=== PATIENT | male | born 1980 | race Caucasian/White ===

== ENCOUNTER 2020-01-27 11:20 | Emergency (ER) | payer MEDICAID, SELFPAY ==
[2020-01-27 11:24] VITALS: BP 150/97; PULSE 99; RESP 16; TEMP 36.4; O2SAT 100
--- NOTE | 2020-01-27 11:34 | ED.MALEGU ---
HPI - Male Genitourinary General Chief complaint: Urogenital-Male Stated complaint: erection Time Seen by Provider: 01/27/20 11:32 Source: patient and RN notes reviewed Mode of arrival: ambulatory Limitations: no limitations History of Present Illness HPI Narrative: A 40 y/o male presents to the ED with priapism every morning for the past couple months. He states that his erections typically lasts a couple hours to the whole day and tend to resolve randomly. He reports that he has seen his PCP and [facility] about this, who told him that it probably was a side effect of citalopram, so he stopped taking it roughly 1 month ago but his symptoms have persisted. He notes some dysuria and that he has been losing sleep because of his symptoms, so he decided to come to the ED. He also notes that he has stopped taking all of his medications to try an figure out the cause but denies it alleviating his symptoms. He also denies any testicular pain, hematuria, urinary retention, urinary frequency, N/V/D, or ABD pain. MD Complaint: other (priapism) Onset (ago): month(s) (a couple) Duration: intermittent (every morning) Location: penis Relieving factors: none Associated symptoms: Reports dysuria Related Data Home Medications Medication Instructions Recorded Confirmed alprazolam [Xanax] 0.5 mg PO BID PRN 01/27/20 Allergies Allergy/AdvReac Type Severity Reaction Status Date / Time tramadol Allergy Intermediate HIVES Verified 01/27/20 11:30 Review of Systems Review of Systems: All systems reviewed & are unremarkable except as noted in HPI and below Gastrointestinal: Gastrointestinal: Denies abdominal pain, Denies diarrhea, Denies nausea and Denies vomiting Genitourinary: Genitourinary: Denies hematuria, Reports dysuria, Denies testicular pain, Denies urinary frequency and Reports other (priapism. Denies: urinary retention) [facility] Past Medical History Medical History (Updated 01/27/20 @ 14:08 by Manjit Daniels MD) PTSD (post-traumatic stress disorder) Surgical History Surgical History (Updated 01/27/20 @ 11:47 by Damion Last) History of cholecystectomy Hx of shoulder surgery S/P insertion of spinal cord stimulator Social History Social History (Updated 01/27/20 @ 11:47 by Damion Last) Smoking packs per day: 0.5 Smoking cigarettes per day: 10.0 Smoking status: Current every day smoker Exam Narrative: Exam Narrative: GENERAL: Well-appearing, well-nourished, and in no acute distress. HEAD: Normocephalic, atraumatic. ENT: Mucous membranes moist. CHEST: Clear to auscultation. No respiratory distress. HEART: Regular rate and rhythm. Normal peripheral pulses. ABDOMEN: Soft, nontender, nondistended. : Normal-appearing erect penis that is circumcised. Nontender to palpation. Testicles nontender. No drainage from the urethral meatus. No discoloration to the penis. EXTREMITIES: Normal range of motion. No edema. NEURO: Alert and oriented x3. Course Course Emergency Course: Reevaluation of the penis shows that it is still firm but has lost its rigidity during the ER stay. After discussing case with urology patient will be started on as needed Sudafed. Patient will follow-up outpatient. Discussed return precautions. Discussed that if there is a sustained painful erection he may need aspiration which she is hesitant to have. Consultations Consultation #1: Discussed case with Dr. Bryant (Urology). States that the pt can be given Sudafed and follow up in their office. Recommends that the pt stop smoking marijuana. Date: 01/27/20 Time: 13:09 Vital Signs Vital signs: Vital Signs Temperature 97.6 F 01/27/20 11:24 Pulse Rate 99 01/27/20 11:24 Respiratory Rate 16 01/27/20 11:24 Blood Pressure 150/97 H 01/27/20 11:24 Pulse Oximetry 100 01/27/20 11:24 Temperature 97.6 F 01/27/20 11:24 Pulse Rate 82 01/27/20 13:15 Respiratory Rate 16 01/27/20 13:15 Blood Pressure 132/88 01/27/20 13:15 Pu
[2020-01-27 12:13] LABS: Basophils Absolute Auto 0.1 K/mm3 (0.0-0.1); Basophils Percent Auto 0.8 % (0.2-1.2); Eosinophils Absolute Auto 0.4 K/mm3 (0-0.3); Eosinophils Percent Auto 5.5 % (0-4.4); Hematocrit 47.9 % (42.0-52.0); Hemoglobin 15.6 g/dL (14.0-18.0); Immature Granulocyte Absolute 0.02 K/mm3 (0.00-0.031); Immature Granulocyte Percent A 0.3 % (0-0.5); Mean Corpuscular HGB Conc 32.6 g/dl (32-36); Mean Corpuscular Hemoglobin 30.1 pg (26-34); Mean Corpuscular Volume 92.5 fl (80-100); Mean Platelet Volume 9.2 fl (7.4-10.4); Monocytes Absolute Auto 1.3 K/mm3 (0.1-0.6); Monocytes Percent Auto 19.4 % (2.6-8.5); Neutrophils Absolute Auto 3.3 K/mm3 (1.3-6.7); Platelet Count Result 361 k/mm3 (150-375); Red Blood Count 5.18 M/mm3 (4.6-6.20); Red Cell Distribution Width 12.8 % (11.5-14.5); White Blood Count 6.5 K/mm3 (4.5-10.0)
[2020-01-27] MEDS: SODIUM CHLORIDE 0.9% IV 1,000 ML 999 ML IV CONT (12:13)
[2020-01-27 12:15] LABS: Add Urine Microscopic? NO; Appearance Urine Clear (Clear); Bilirubin Urine Negative (Negative); Blood Urine Negative (Negative); Color Urine Straw (Yellow); Glucose Urine UA Negative (Negative); Ketones Urine Negative (Negative); Leukocyte Esterase Ur Negative LEU/UL (Negative); Nitrate Urine Negative (Negative); Protein Urine Negative (Negative); Urobilinogen Urine Negative mg/dL (<2.0)
[2020-01-27 12:24] LABS: Blood Urea Nitrogen 10 mg/dL (9-20); Calcium 8.9 mg/dL (8.4-10.2); Carbon Dioxide 29 mmol/L (22-30); Chloride 99 mmol/L (98-107); Estimated CRCL calculation 108 ml/min; Estimated Glomerular Filt Rate > 60; Glucose 101 mg/dL (75-110); Potassium 4.4 mmol/L (3.4-5.0); Sodium 140 mmol/L (137-145)
[2020-01-27 12:29] LABS: Amphetamine Screen Urine Negative (Negative); Barbiturate Screen Urine Negative (Negative); Benzodiazepines Screen Urine Positive (Negative); Cannabinoid Screen Urine Positive (Negative); Cocaine Screen Urine Negative (Negative); Methadone Screen Urine Negative (Negative); Opiate Screen Urine Positive (Negative); Phencyclidine Screen Urine Negative (Negative)
[2020-01-27 13:15] VITALS: BP 132/88; PULSE 82; RESP 16; O2SAT 100
[2020-01-27] MEDS: PSEUDOEPHEDRINE HCL 30 MG TABLET 60 MG PO (13:19)
[2020-01-27 14:19] VITALS: BP 127/78; PULSE 68; RESP 16; O2SAT 100
== END 2020-01-27 14:19 | disposition home or self-care (01) ==
PROVIDERS: Emergency Provider Emergency Medicine
DX: N48.30 Priapism, unspecified (principal); F43.10 Post-traumatic stress disorder, unspecified; F17.210 Nicotine dependence, cigarettes, uncomplicated
CPT/HCPCS: 36415; 80048; 80307; 81003; 85025; 96360; 99283; A9270; J7030

== ENCOUNTER 2020-04-15 19:31 | Emergency (ER) | payer MEDICAID, SELFPAY ==
[2020-04-15 19:43] VITALS: BP 119/67; PULSE 107; RESP 18; TEMP 36.6; O2SAT 98
--- NOTE | 2020-04-15 19:51 | ED.WOUNDLAC ---
HPI - Wound/Laceration General Chief Complaint: Wound/Laceration Stated Complaint: leg Time Seen by Provider: 04/15/20 19:51 Source: patient Mode of arrival: ambulatory Limitations: no limitations History of Present Illness HPI narrative: Joseph Carter is a 40 yo male with a PMH chronic back pain who comes to express care with pain and swelling of right lateral lower leg, has been present since last Saturday (7 days). abscess is improving , is draining blood and pussy discharge and pr staes is half size of few days ago Related Data Home Medications Medication Instructions Recorded Confirmed Hydrocodone 04/15/20 Allergies Allergy/AdvReac Type Severity Reaction Status Date / Time tramadol Allergy Intermediate HIVES Verified 01/27/20 11:30 Review of Systems Review of Systems: Narrative: CONSTITUTIONAL: Denies fever, chills, sweats. EYES: Denies visual changes, redness, discharge. ENT: Denies rhinorrhea, congestion, sore throat, otalgia. CARDIOVASCULAR: Denies chest pain, palpitations, edema. RESPIRATORY: Denies dyspnea, wheezing, cough GASTROINTESTINAL: Denies abdominal pain, nausea, vomiting, diarrhea. GENITOURINARY: Denies dysuria, hematuria, abnormal discharge SKIN: Denies rash or itching.Draining abscess R lateral lower leg NEUROLOGIC: Denies numbness, or focal weakness. PSYCHIATRIC: Denies anxiety or depression. PMFSH Past Medical History Medical History PTSD (post-traumatic stress disorder) Surgical History Surgical History History of cholecystectomy Hx of shoulder surgery S/P insertion of spinal cord stimulator Social History Social History (Updated 04/15/20 @ 20:06 by Chacha Oseguera CNP) Smoking packs per day: 0.5 Smoking cigarettes per day: 10.0 Smoking status: Current every day smoker Alcohol intake: former Comments At time of signature, I agree with nursing past medical, surgical, social and family history. There is no relevant family history pertinent to the presenting complaint. Exam Narrative: Exam Narrative: GENERAL: This is a well-nourished, well-developed patient, in mild distress. HEAD: normocephalic, atraumatic. EYES: PERRL. Sclera clear/white. Vision is grossly intact. EARS: External ears normal, auditory canals clear and without drainage, TMs normal without perforation. Hearing grossly intact. NOSE: External nose normal without nasal discharge, nares without redness, no rhinorrhea. THROAT: Mucous membranes moist, posterior pharynx NECK: Neck supple, non-tender CARDIOVASCULAR: Regular rate and rhythm without murmurs, gallops, or rubs. RESPIRATORY: Clear to auscultation. Breath sounds equal bilaterally. No wheezes, rales, or rhonchi. GASTROINTESTINAL: Abdomen soft, non-tender, SKIN: warm, R lateral non fluctuant abscess that is draining - about 8 cm. mild tenderness NEURO: awake, alert, and oriented to person, place and time. There were no obvious focal neurologic abnormalities. Steady gait EXTREMITIES: Normal range of motion. BACK: has stimulator for back pain Course Course Emergency Course: Started on Bactrim and Keflex Discussed warm soaks to legs and not trying to express drainage Keep dressing in place during the day Follow-up with PCP Vital Signs Vital signs: Vital Signs Temperature 97.8 F 04/15/20 19:43 Pulse Rate 107 H 04/15/20 19:43 Respiratory Rate 18 04/15/20 19:43 Blood Pressure 119/67 04/15/20 19:43 Pulse Oximetry 98 04/15/20 19:43 Temperature 97.8 F 04/15/20 19:43 Pulse Rate 107 H 04/15/20 19:43 Respiratory Rate 18 04/15/20 19:43 Blood Pressure 119/67 04/15/20 19:43 Pulse Oximetry 98 04/15/20 19:43 MDM - Wound/Laceration Differential Diagnosis Differential diagnosis: Likely abscess, abrasion and other (Cellulitis) Discharge Plan Discharge Clinical Impression: Abscess of right lower leg P
== END 2020-04-15 20:10 | disposition home or self-care (01) ==
PROVIDERS: Emergency Provider Nurse Practitioner
DX: L02.415 Cutaneous abscess of right lower limb (principal); F17.210 Nicotine dependence, cigarettes, uncomplicated
CPT/HCPCS: 99213; G0463

== ENCOUNTER 2020-08-10 16:39 | Emergency (ER) | payer OTHER, SELFPAY ==
--- NOTE | 2020-08-10 16:49 | ED.SKABFB ---
HPI - Skin/Abscess/Foreign Bdy General Chief complaint: Skin/Abscess/Foreign Body Stated complaint: Skin/Foreign Abcess Time Seen by Provider: 08/10/20 16:45 Source: patient and RN notes reviewed Mode of arrival: ambulatory Limitations: no limitations History of Present Illness HPI narrative: 40-year-old male presents with concern for an abscess behind his left knee. Reports he frequently gets these areas. Reports he uses antibacterial body wash, showers twice daily, however continues to get these. Reports he last had one in April. He denies any current drainage from the area. Denies any injury, trauma. complaint: abscess/boil Related Data Home Medications Medication Instructions Recorded Confirmed No Home Medications 08/10/20 08/10/20 Allergies Allergy/AdvReac Type Severity Reaction Status Date / Time tramadol Allergy Intermediate HIVES Verified 08/10/20 16:42 Review of Systems Review of Systems: Narrative: CONSTITUTIONAL: Denies malaise, chills, sweats, or fever. CARDIOVASCULAR: Denies chest pain, palpitations RESPIRATORY: Denies cough or dyspnea. SKIN: Reports abscess behind the left knee MUSCULOSKELETAL: Denies myalgia. All systems reviewed & are unremarkable except as noted in HPI and below PMFSH Social History Social History (Updated 04/15/20 @ 20:06 by Chacha Oseguera CNP) Smoking packs per day: 0.5 Smoking cigarettes per day: 10.0 Smoking status: Current every day smoker Alcohol intake: former Comments At time of signature, agree with nursing past medical, surgical, social and family history. There is no relevant family history pertinent to the presenting complaint Exam Narrative: Exam Narrative: GENERAL: Well-appearing, well-nourished, and in no acute distress. HEAD: Normocephalic EYES: PERRLA, conjunctivae clear ENT: Mucous membranes moist. NECK: Supple. CHEST: No respiratory distress. Speaks in full sentences. HEART: Regular rate and rhythm. EXTREMITIES: Right lower extremity has grossly normal range of motion, grossly normal strength and sensation. SKIN: Warm, dry, no rash. Approximately 3 cm papule, erythematous, indurated, tender noted behind the right knee, lateral area, nonfluctuant, no drainage noted NEURO: Alert and oriented x3. PSYCH: Normal mood and affect Course Course Emergency Course: Patient is aware of diagnosis, understands and agrees to treatment plan. Anticipatory guidance given. Patient agrees to follow-up as directed and is aware of reasons to seek care at the emergency department. Portions of this record may have been created with voice recognition software Vital Signs Vital signs: Vital Signs Temperature 98.9 F 08/10/20 16:50 Pulse Rate 84 08/10/20 16:50 Respiratory Rate 16 08/10/20 16:50 Blood Pressure 134/81 08/10/20 16:50 Pulse Oximetry 99 08/10/20 16:50 Temperature 98.9 F 08/10/20 16:50 Pulse Rate 84 08/10/20 16:50 Respiratory Rate 16 08/10/20 16:50 Blood Pressure 134/81 08/10/20 16:50 Pulse Oximetry 99 08/10/20 16:50 Reviewed. MDM - Skin/Abscess/Foreign Bdy MDM Narrative Medical decision making narrative: Exam findings show no acute concerns or changes; patient is non-toxic appearing and is in no distress. Patient is appropriate for outpatient treatment and follow-up. Differential Diagnosis Differential diagnosis: Likely abscess of skin or subcutaneous tissue, cellulitis and insect bites Critical Care Time Critical Care Time Critical Care Time: No Discharge Plan Discharge Clinical Impression: Abscess of skin or subcutaneous tissue Qualifiers: Site of cutaneous abscess: extremity Site of cutaneous abscess of extremity: lower extremity Laterality: left Qualified Code(s): L02.416 - Cutaneous abscess of left lower limb Patient Disposition: Home, Self-Care Condition: Stable Instructions: Antibiotic Form, Abscess (ED) Additional Instructions: Please follow up with your Primary Care Doctor wit
[2020-08-10 16:50] VITALS: BP 134/81; PULSE 84; RESP 16; TEMP 37.2; O2SAT 99
== END 2020-08-10 17:00 | disposition home or self-care (01) ==
PROVIDERS: Emergency Provider Nurse Practitioner
DX: L02.416 Cutaneous abscess of left lower limb (principal); F17.210 Nicotine dependence, cigarettes, uncomplicated
CPT/HCPCS: 99213; G0463

== ENCOUNTER 2020-11-14 19:53 | Emergency (ER) | payer OTHER, SELFPAY ==
--- NOTE | ~2020-11-14 | XR_ITS ---
EXAMINATION: XR chest 2V EXAM DATE: 11/14/2020 20:19 INDICATION: Mid chest pain. TECHNIQUE: Frontal and lateral projections of the chest obtained and reviewed. There is no prior karen dy for comparison. FINDINGS: There is mild to moderate upper thoracic levoscoliosis, mid thoracic dextroscoliosis. No c onfluent consolidation, pneumothorax or pleural effusion suspected. Cardiomediastinal silhouette is n ormal. IMPRESSION: No acute cardiopulmonary findings. Reviewed, dictated and finalized at location A. [employer]ING [employer] UNLOADER
[2020-11-14 19:55] VITALS: BP 154/78; PULSE 108; RESP 16; TEMP 36.3; O2SAT 100
--- NOTE | 2020-11-14 19:57 | ECG_ITS ---
Measurements Intervals [place] Rate: 106 P: 50 MN: 176 QRS: 59 QRSD: 89 T: 60 QT: 330 QTc: 439 Interpretive Statements SINUS TACH[address] ST ELEVATION IN DIFFUSE LEADS- PROBABLY EARLY REPOLARIZATION BASELINE WANDER- V1-V3 ABNORMAL ECG Electronically Signed On 11-15-2020 7:11:07 MIXING AND MOLDING MACHINE OPERATOR by Patel Guthrie D.O.
--- NOTE | 2020-11-14 20:02 | ED.GENADULT ---
HPI - General Adult General Chief complaint: Overdose Stated complaint: OD Source: RN notes reviewed History of Present Illness HPI narrative: Patient presents to emergency department via EMS for overdose. Patient states that prior to arrival he snorted a unknown drug that he had received from a friend. He does not recall what happened after this however per bystander the patient went unconscious and at that time was admitted for milligrams of IM Narcan. CPR was started on the patient by the bystander for approximately 1 minute then the patient returned to being awake and alert when EMS arrived the patient was ANO x4. The patient is currently ANO x4 no complaints except for bilateral anterior chest pain he states he was in good health prior to episodes this evening he denies any regular drug use he denies any fevers or chills abdominal pain or any other symptoms Related Data Home Medications Medication Instructions Recorded Confirmed No Home Medications 08/10/20 08/10/20 Allergies Allergy/AdvReac Type Severity Reaction Status Date / Time tramadol Allergy Intermediate HIVES Verified 08/10/20 16:42 Review of Systems Review of Systems: Narrative: Gen.: Denies fevers or chills ENT: Denies congestion Respiratory: Denies shortness of breath or cough CV: Reports chest pain GI: Denies abdominal pain nausea, emesis or diarrhea denies burning, urgency, frequency or hematuria Musculoskeletal: Denies back pain or muscle pain Neuro: Denies numbness, tingling, weakness or focal weakness Skin: Denies rash Except as documented, all other systems reviewed and negative [facility] Past Medical History Medical History (Updated 11/14/20 @ 21:55 by Sonny Pyle DO) PTSD (post-traumatic stress disorder) Surgical History Surgical History History of cholecystectomy Hx of shoulder surgery S/P insertion of spinal cord stimulator Social History Social History Smoking packs per day: 0.5 Smoking cigarettes per day: 10.0 Smoking status: Current every day smoker Alcohol intake: former Exam Narrative: Exam Narrative: APPEARANCE: No acute distress, nontoxic, resting in bed EYES: EOMI HEENT: Normocephalic, atraumatic, OMM RESPIRATORY: No respiratory distress Clear to auscultation bilaterally with no rhonchi wheezing or rales. CARDIOVASCULAR: Regular rate and rhythm without murmurs rubs or gallops. Chest: Tender palpation of bilateral anterior chest wall ABDOMINAL: Soft, nontender, nondistended, no rebound or guarding MUSCULOSKELETAl: Moves all extremities. No clubbing, cyanosis or edema. NEURO: Awake and alert x 4. Following commands, speech normal, no focal deficits SKIN:: Warm, dry. No rashes lesions or abrasions PSYCHIATRIC: Normal affect/mood, Course Course Emergency Course: Patient been monitored in the emergency department and remained awake and alert the patient then eloped from the facility without notifying staff or myself patient. Vital Signs Vital signs: Vital Signs Temperature 97.4 F L 11/14/20 19:55 Pulse Rate 108 H 11/14/20 19:55 Respiratory Rate 16 11/14/20 19:55 Blood Pressure 154/78 H 11/14/20 19:55 Pulse Oximetry 100 11/14/20 19:55 Temperature 97.4 F L 11/14/20 19:55 Pulse Rate 105 H 11/14/20 20:56 Respiratory Rate 16 11/14/20 20:56 Blood Pressure 161/79 H 11/14/20 20:56 Pulse Oximetry 97 11/14/20 20:56 Medical Decision Making Vital Signs Vital Signs: Vital Signs Temperature 97.4 F L 11/14/20 19:55 Pulse Rate 108 H 11/14/20 19:55 Respiratory Rate 16 11/14/20 19:55 Blood Pressure 154/78 H 11/14/20 19:55 Pulse Oximetry 100 11/14/20 19:55 Temperature 97.4 F L 11/14/20 19:55 Pulse Rate 105 H 11/14/20 20:56 Respiratory Rate 16 11/14/20 20:56 Blood Pressure 161/79 H 11/14/20 20:56 Pulse Oximetry 97 11/14/20 20:56 Lab Data
[2020-11-14 20:26] VITALS: RESP 17
[2020-11-14 20:37] LABS: Basophils Percent Auto 0.5 % (0.2-1.2); Eosinophils Absolute Auto 0.2 K/mm3 (0-0.3); Eosinophils Percent Auto 1.8 % (0-4.4); Hematocrit 47.1 % (42.0-52.0); Hemoglobin 15.8 g/dL (14.0-18.0); Immature Granulocyte Absolute 0.03 K/mm3 (0.00-0.031); Immature Granulocyte Percent A 0.4 % (0-0.5); Lymphocytes Absolute Auto 1.18 K/mm3 (0.9-3.2); Lymphocytes Percent Auto 13.9 % (18.3-44.2); Mean Corpuscular HGB Conc 33.5 g/dl (32-36); Mean Corpuscular Volume 92.5 fl (80-100); Mean Platelet Volume 8.6 fl (7.4-10.4); Monocytes Absolute Auto 0.8 K/mm3 (0.1-0.6); Monocytes Percent Auto 9.6 % (2.6-8.5); Neutrophils Absolute Auto 6.3 K/mm3 (1.3-6.7); Neutrophils Percent Auto 73.8 % (45.5-73.1); Platelet Count Result 341 k/mm3 (150-375); Red Blood Count 5.09 M/mm3 (4.6-6.20); Red Cell Distribution Width 12.9 % (11.5-14.5); White Blood Count 8.5 K/mm3 (4.5-10.0)
--- NOTE | 2020-11-14 20:46 | PC.NURSE ---
Patient refusing to give urine specimen saying, I'm not doing that, I don't plan on being here all night. Bring me a soda.
[2020-11-14 20:47] LABS: Prothrombin Time 13.3 Seconds (11.1-14.7)
[2020-11-14 20:48] LABS: Partial Thromboplastin Time 28.1 SECONDS (22.3-36.8)
[2020-11-14 20:49] LABS: Alanine Aminotransferase 21 U/L (4-50); Albumin Level 4.5 g/dL (3.5-5.1); Alkaline Phosphatase 102 U/L (38-126); Anion Gap 7 mmol/L (8-16); Aspartate Amino Transferase 26 U/L (17-59); Bilirubin,Total 0.3 mg/dL (0.2-1.3); Blood Urea Nitrogen 10 mg/dL (9-20); Calcium 9.2 mg/dL (8.4-10.2); Carbon Dioxide 32 mmol/L (22-30); Chloride 102 mmol/L (98-107); Estimated CRCL calculation 80 ml/min; Estimated Glomerular Filt Rate > 60; Glucose 113 mg/dL (75-110); Potassium 4.3 mmol/L (3.4-5.0); Sodium 141 mmol/L (137-145)
[2020-11-14 20:55] LABS: Ethanol < 10 mg/dL (<10)
[2020-11-14 20:56] VITALS: BP 161/79; PULSE 105; RESP 16; O2SAT 97
[2020-11-14 21:01] LABS: Troponin I < 0.012 ng/mL (0.000-0.034)
--- NOTE | 2020-11-14 21:48 | PC.NURSE ---
Pt noted to be leaving the department by staff. Pt walked out through triage. ERP aware.
== END 2020-11-14 21:53 | disposition left against medical advice (07) ==
PROVIDERS: Emergency Provider Emergency Medicine
DX: T50.901A Poisoning by unspecified drugs, medicaments and biological substances, accidental (unintentional), initial encounter (principal); F17.210 Nicotine dependence, cigarettes, uncomplicated; R00.0 Tachycardia, unspecified; R94.31 Abnormal electrocardiogram [ECG] [EKG]
CPT/HCPCS: 36415; 71046; 80053; 80307; 84484; 85025; 85610; 85730; 93005; 99284

== ENCOUNTER 2021-05-04 06:26 | Inpatient (IN) | payer OTHER, SELFPAY ==
[2021-05-04] VITALS (35 sets, daily range): BP systolic 81–147; BP diastolic 57–110; PULSE 67–145; RESP 20–32; TEMP 32.6–38.4; O2SAT 88–100; BMI 30.9
--- NOTE | ~2021-05-04 | CT_ITS ---
EXAMINATION: CT brain wo con DATE: 05/04/2021 08:06 INDICATION: Status post cardiac arrest. Overdose. TECHNIQUE: Computed tomography (CT) of the head was performed without intravenous contrast. Sagittal and coronal reconstructions were performed. The mA was adjusted according to patient size. Iterative reconstruction technique was employed. The dose-length product was 832.33 mGy-cm. COMPARISON: None FINDINGS: No acute intracranial hemorrhage or abnormal extra axial fluid collection. There is still discernible but decreased borrego-white matter differentiation along with effacement of the sulci and narrowing of the third and left and right lateral ventricles suggesting diffuse cerebral edema potentially in the setting of diffuse anoxic brain injury. The basal cisterns remain patent. No mass/mass effect. The or bits and mastoid air cells are normal. Mucosal thickening in the bilateral ethmoid sinuses. IMPRESSION: 1. Diffuse decreased borrego-white matter differentiation and narrowing of the sulci and ventricles sugg esting diffuse cerebral edema likely related to global anoxic brain injury. Reviewed, dictated and finalized at location A. IMPRESSION: 1. Diffuse decreased borrego-white matter differentiation and narrowing of the sul ci and ventricles suggesting diffuse cerebral edema likely related to global an oxic brain injury.
--- NOTE | ~2021-05-04 | XR_ITS ---
EXAMINATION: XR chest 1V portable EXAM DATE: 05/09/2021 05:25 INDICATION: Respiratory failure. Global anoxic brain injury. TECHNIQUE: Portable AP frontal chest x-ray was obtained. Comparison is made to prior examination from 05/08, 05/07. FINDINGS: Endotracheal tube tip is 3 centimeters above the sarah. Feeding tube in expected position . Several leads probably external pacer. Small to moderate amount of bibasilar atelectasis, or possibly edema and/or pneumonia. Probable laye ring small pleural effusions There is no pneumothorax suspected. Cardiomediastinal silhouette is n ormal. The bones and soft tissues are unremarkable. Compared to prior study there is been some progression in the basilar opacity. IMPRESSION: 1. Tubes in position. 2. Bibasilar opacity, combination of small pleural effusions and associated atelectasis. Edema/pneum onia not excludable. Reviewed, dictated and finalized at location A. IMPRESSION: 1. Tubes in position. 2. Bibasilar opacity, combination of small pleural effusions and associated at electasis. Edema/pneumonia not excludable.
--- NOTE | ~2021-05-04 | XR_ITS ---
EXAMINATION: XR chest 1V portable EXAM DATE: 05/08/2021 05:19 INDICATION: Respiratory failure. Global anoxic brain injury. TECHNIQUE: Portable AP frontal chest x-ray was obtained. Comparison is made to prior examination from 05/07, 05/06. FINDINGS: Endotracheal tube tip is 3 centimeters above the sarah. Feeding tube in expected position . Several leads which could be cardiac monitoring or external pacer. Small to moderate amount of bibasilar atelectasis, edema and/or pneumonia. Possible layering small p leural effusions There is no pneumothorax suspected. Cardiomediastinal silhouette is normal. The bones and soft tissues are unremarkable. Compared to prior study there is been some progression in the basilar opacity. IMPRESSION: 1. Tubes in position. 2. Progression of basilar opacity could be developing pleural effusions, atelectasis pneumonia or ed maira.. Reviewed, dictated and finalized at location A. IMPRESSION: 1. Tubes in position. 2. Progression of basilar opacity could be developing pleural effusions, atele ctasis pneumonia or edema..
--- NOTE | ~2021-05-04 | CT_ITS ---
EXAMINATION: CT cervical spine wo con EXAM DATE: 05/04/2021 08:06 INDICATION: Post cardiac arrest. Priapism. Intubated. TECHNIQUE: Spiral CT of the cervical spine was performed without contrast. Axial images were reviewe d. Coronal and sagittal reformatted images cervical spine were also reviewed. The dose-length produc t (DLP) for this examination was 548.56 mGy-cm. The exposure was tailored according to patient size (auto mA exposure control), and iterative reconstruction (ASIR) was used as additional dose reduction technique. There is no prior study for comparison. FINDINGS: Endotracheal tube. Cervical thoracic curvature, positional versus scoliosis. There is no ev idence of acute cervical fracture. The odontoid process is intact. Pre-dens space is normal. Preve rtebral soft tissue is normal. There are no soft tissue abnormalities identified. There is no disc space widening or traumatic vertebral body subluxation suspected. Mild disc disease at C5-6. Mild ce rvical arthropathy. There is mild reversal of the normal cervical lordosis which may be positional or spasm. A detailed level by level evaluation of spondylosis can be added as addendum if requested. IMPRESSION: 1. Mild reversal normal cervical lordosis. 2. No fracture. Reviewed, dictated and finalized at location B.
--- NOTE | ~2021-05-04 | XR_ITS ---
EXAMINATION: XR chest 1V portable DATE: 05/05/2021 05:47 INDICATION: Intubated TECHNIQUE: frontal and lateral views of the chest were obtained. COMPARISON: Chest radiograph dated 05/31/2021 FINDINGS: Endotracheal tube tip 5.5 cm above the sarah. Nasogastric tube extends below the left hemidiaphragm with distal tip and proximal side port in the body of the stomach. Multiple catheters projecting ove r the left lower chest and upper quadrant. Fibrillator pad projects over the right mid chest. Resolution of prior opacities in the left upper lung zone. New retrocardiac airspace opacity in the l eft lower lung zone with obscuration of the diaphragm. Mild streaky atelectasis in the left mid and r ight lower lung zones. No pneumothorax or right-sided pleural effusion. The cardiomediastinal silhoue tte is normal. Mild S-shaped thoracic scoliosis. IMPRESSION: 1. Improved aeration in the left upper lung zone with new retrocardiac consolidation at the left lowe r lung zone. Differential would include shifting atelectasis, new pneumonia, small left pleural effus ion or some combination thereof. Reviewed, dictated and finalized at location A. IMPRESSION: 1. Improved aeration in the left upper lung zone with new retrocardiac consolid ation at the left lower lung zone. Differential would include shifting atelecta sis, new pneumonia, small left pleural effusion or some combination thereof.
--- NOTE | ~2021-05-04 | XR_ITS ---
EXAMINATION: XR chest 1V portable DATE: 05/08/2021 17:24 INDICATION: Organ determination TECHNIQUE: frontal view of the chest was obtained. The COMPARISON: Chest radiograph dated 05/08/2021 at 5:17 AM FINDINGS: Endotracheal tube tip 2.0 cm above the sarah. Nasogastric tube coiled in the stomach. Dilator leads project over the left upper quadrant. . Basilar predominant hazy airspace opacities in the bilateral lower lung zones consistent with small bilateral pleural effusions and associated bibasilar atelectasis or less likely pneumonia. No pulmon manjinder edema or pneumothorax. Heart size is normal. Lower thoracic dextroscoliosis. IMPRESSION: 1. Persistent bibasilar opacities with appearance favoring small bilateral pleural effusions and asso ciated atelectasis. Differential includes pneumonia. Reviewed, dictated and finalized at location A. IMPRESSION: 1. Persistent bibasilar opacities with appearance favoring small bilateral pleu ral effusions and associated atelectasis. Differential includes pneumonia.
--- NOTE | ~2021-05-04 | XR_ITS ---
EXAMINATION: XR chest ET placement DATE: 05/04/2021 07:02 INDICATION: Endotracheal tube placement TECHNIQUE: frontal view of the chest was obtained. COMPARISON: Chest radiograph dated 11/14/2020 FINDINGS: Endotracheal tube tip 3.1 cm above the sarah. Defibrillator pad projects over the right upper chest. Multiple electrodes project over the inferior left chest/left upper quadrant. Confluent airspace opacity in the left upper lung zone with more streaky opacities in the left mid an d lower and right mid lung zones. No pleural effusion or pneumothorax. Heart size is normal.Mild S-s haped thoracic scoliosis. IMPRESSION: 1. New consolidation in the left upper lung zone which could represent atelectasis and/or pneumonia. Reviewed, dictated and finalized at location A. IMPRESSION: 1. New consolidation in the left upper lung zone which could represent atelecta sis and/or pneumonia.
--- NOTE | ~2021-05-04 | XR_ITS ---
EXAMINATION: XR chest 1V portable EXAM DATE: 05/06/2021 05:32 INDICATION: Resp Failure . Global anoxic brain injury. TECHNIQUE: Portable AP frontal chest x-ray was obtained. Comparison is made to prior examination from 05/05/2021. FINDINGS: Endotracheal tube tip is 6 centimeters above the sarah. Feeding tube in expected position . Several leads which could be cardiac monitoring or external pacer. Small amount of left basilar atelectasis or pneumonia. There are no sizable pleural effusions. The re is no pneumothorax suspected. Cardiomediastinal silhouette is normal. The bones and soft tissue s are unremarkable. There is no significant interval change compared to prior exam. IMPRESSION: 1. Tubes in position. 2. Small amount of left lower lobe atelectasis or pneumonia. Reviewed, dictated and finalized at location A.
--- NOTE | ~2021-05-04 | CT_ITS ---
EXAMINATION: CT brain wo con EXAM DATE: 05/05/2021 00:01 INDICATION: Unequal left pupil dilation. Cardiac arrest. Anoxic brain injury. TECHNIQUE: Spiral CT of the head was performed without contrast. Axial, coronal and sagittal images were reviewed. The dose-length product (DLP) for this examination was 605.33 mGy-cm. The exposure w as tailored according to patient size, and iterative reconstruction (ASIR) was used as additional dos e reduction technique. Comparison is made to prior examination from 05/04/2021. FINDINGS: Again there is diffuse effacement of the sulci overlying the cortex and cerebellum. There i s also now complete effacement of the ventricular system, with the cerebellum filling the posterior f pardeep and foramen magnum, developing tonsillar herniation. There may be early uncal herniation as well . Low density within the caudate and basal ganglia bilaterally. Appearance is consistent with global anoxic brain injury. No acute intracranial hemorrhage. No extra-axial collections. Nasogastric tube. IMPRESSION: Global anoxic brain injury with worsening cerebral and cerebellar edema, effacement of v entricles and developing tonsillar uncal herniation. Infarcted basal ganglia and caudate bilaterally. Reviewed, dictated and finalized at location B. IMPRESSION: Global anoxic brain injury with worsening cerebral and cerebellar edema, effacement of ventricles and developing tonsillar uncal herniation. Infa rcted basal ganglia and caudate bilaterally.
--- NOTE | ~2021-05-04 | XR_ITS ---
EXAMINATION: XR chest 1V portable EXAM DATE: 05/07/2021 05:33 INDICATION: Respiratory failure. Global anoxic brain injury. TECHNIQUE: Portable AP frontal chest x-ray was obtained. Comparison is made to prior examination from 05/06/2021. FINDINGS: Endotracheal tube tip is 3.6 centimeters above the sarah. Feeding tube in expected positi on. Several leads which could be cardiac monitoring or external pacer. Small to moderate amount of left basilar atelectasis, edema and/or pneumonia. There are no sizable p leural effusions. There is no pneumothorax suspected. Cardiomediastinal silhouette is normal. Th e bones and soft tissues are unremarkable. Compared to prior study, endotracheal tube has been advanced, and there is been some progression in t he basilar airspace disease. IMPRESSION: 1. Tubes in position. 2. Some progression in bibasilar acute airspace disease. Reviewed, dictated and finalized at location A.
--- NOTE | ~2021-05-04 | XR_ITS ---
EXAMINATION: XR abdomen NG/feed tube insert DATE: 05/04/2021 15:15 INDICATION: Nasogastric tube placement. TECHNIQUE: A supine view of the abdomen was obtained. COMPARISON: None. FINDINGS: There are dilated loops of small bowel. The colon is normal in caliber. The lower abdomen i s excluded. There is gaseous distention of the stomach. Surgical clips in the right upper quadrant ar e likely from cholecystectomy. A nasogastric tube tip is in the stomach. IMPRESSION: 1. Nasogastric tube tip in the stomach. 2. Dilated small bowel, likely adynamic ileus. Reviewed, dictated and finalized at location A.
--- NOTE | ~2021-05-04 | CT_ITS ---
EXAMINATION: CT brain wo con EXAM DATE: 05/08/2021 09:30 INDICATION: Anoxic Brain Injury . TECHNIQUE: Spiral CT of the head was performed without contrast. Axial, coronal and sagittal images were reviewed. The dose-length product (DLP) for this examination was 605.33 mGy-cm. The exposure w as tailored according to patient size, and iterative reconstruction (ASIR) was used as additional dos e reduction technique. Comparison is made to prior examination from 05/04/2021. FINDINGS: Prior study had diffuse cerebral and cerebellar edema, low density basal ganglia and caudat e. Compared to prior study, the cerebrum and cerebellum now has decreased density similar to the dens ity basal ganglia and caudate, consistent with evolution of global ischemic injury. Completely collap sed ventricular system from the swelling. Interval increase in density of the sagittal, transverse s inuses and also all the cerebral arteries, likely indicating slow flow or possibly thrombosis. There is herniation of the cerebellar tonsils below the foramen magnum. Difficult to determine any uncal he rniation, but pressure above the tentorium and below tentorium may be equally high. No acute intrapar enchymal hemorrhage. No extra-axial collections. IMPRESSION: Evolution of global anoxic brain injury with edema causing completely collapsed ventricl es, cerebellar tonsillar herniation. Hyperdense vasculature, sinuses either slow flow or possibly thr ombosis. Reviewed, dictated and finalized at location A. IMPRESSION: Evolution of global anoxic brain injury with edema causing complet isaias collapsed ventricles, cerebellar tonsillar herniation. Hyperdense vasculatu re, sinuses either slow flow or possibly thrombosis.
--- NOTE | 2021-05-04 06:49 | ED.GENADULT ---
HPI - General Adult General Chief complaint: Cardiac Arrest/CPR <Tuan Camarena MD - Last Filed: 05/04/21 07:51> Stated complaint: CARDIAC ARREST WITH ROSC <Tuan Camarena MD - Last Filed: 05/04/21 07:51> Time Seen by Provider: 05/04/21 06:46 <Tuan Camarena MD - Last Filed: 05/04/21 07:51> Source: EMS <Tuan Camarena MD - Last Filed: 05/04/21 07:51> Mode of arrival: EMS <Tuan Camarena MD - Last Filed: 05/04/21 07:51> Limitations: clinical condition <Tuan Camarena MD - Last Filed: 05/04/21 07:51> History of Present Illness HPI narrative: Patient 41-year-old gentleman who presents the emergency department with chief complaint of cardiac arrest. Patient was found unresponsive with asystole presenting rhythm. EMS worked in the field for 20 minutes and had return of spontaneous circulation after multiple doses of epinephrine and Narcan. Per the patient's significant other the patient may have overdosed usually uses stimulants but there was a potential that he may have accidentally overdosed. <Tuan Camarena MD - Last Filed: 05/04/21 07:51> Related Data Home medications: Home Medications Medication Instructions Recorded Confirmed No Home Medications 08/10/20 08/10/20 <Tuan Camarena MD - Last Filed: 05/04/21 07:51> Allergies/adverse reactions: Allergies Allergy/AdvReac Type Severity Reaction Status Date / Time tramadol Allergy Intermediate HIVES Verified 08/10/20 16:42 <Tuan Camarena MD - Last Filed: 05/04/21 07:51> Review of Systems Review of Systems: ROS unobtainable: Yes unobtainable due to endotracheal tube, unobtainable due to medical condition and unobtainable due to mental status <Tuan Camarena MD - Last Filed: 05/04/21 07:51> PMFSH Past Medical History Medical History: Medical History (Updated 05/04/21 @ 09:16 by Tiffanie Lainez MD) PTSD (post-traumatic stress disorder) <Tuan Camarena MD - Last Filed: 05/04/21 07:51> Surgical History Surgical History: Surgical History History of cholecystectomy Hx of shoulder surgery S/P insertion of spinal cord stimulator <Tuan Camarena MD - Last Filed: 05/04/21 07:51> Social History Social History: Social History Smoking packs per day: 0.5 Smoking cigarettes per day: 10.0 Smoking status: Current every day smoker Alcohol intake: former <Tuan Camarena MD - Last Filed: 05/04/21 07:51> Exam Narrative: Exam Narrative: GENERAL: Ill-appearing intubated HEAD: Normocephalic, atraumatic. EYES: PERRLA and EOMI. ENT: Nares clear, no rhinorrhea or epistaxis. Mucous membranes moist. NECK: Supple. CHEST: Clear to auscultation. No respiratory distress. HEART: Regular rate and rhythm. No murmur heard. Normal peripheral pulses. ABDOMEN: Soft, nontender, nondistended, normal active bowel sounds. EXTREMITIES: Normal range of motion. No edema. SKIN: Warm, dry, no rash. NEURO: Unresponsive, priapism present PSYCH: Unable to obtain <Tuan Camarena MD - Last Filed: 05/04/21 07:51> Course Reevaluation(s) Reevaluation #1: Patient reassessed this morning. Seems to be very agitated with the tube, but no purposeful movement on neurological exam. He is biting down on the tube. Able to further sedate the patient with some fentanyl, and the bite block was placed. I ordered antibiotics for the patient. Patient was ordered to have a Covid swab. CT head and C-spine notable for anoxic brain injury, no acute cervical pathology. Patient's laboratory results show multiorgan system failure and involvement likely secondary to the prolonged downtime. <Tiffanie Lainez MD - Last Filed: 05/04/21 09:17> Date: 05/04/21 <Tiffanie Garcia
[2021-05-04 07:09] LABS: Basophils Absolute Auto 0.1 K/mm3 (0.0-0.1); Basophils Percent Auto 0.8 % (0.2-1.2); Eosinophils Absolute Auto 0.1 K/mm3 (0-0.3); Eosinophils Percent Auto 1.6 % (0-4.4); Hematocrit 41.3 % (42.0-52.0); Hemoglobin 12.9 g/dL (14.0-18.0); Immature Granulocyte Absolute 0.32 K/mm3 (0.00-0.031); Lymphocytes Absolute Auto 2.61 K/mm3 (0.9-3.2); Lymphocytes Percent Auto 32.8 % (18.3-44.2); Mean Corpuscular HGB Conc 31.2 g/dl (32-36); Mean Corpuscular Hemoglobin 30.4 pg (26-34); Mean Corpuscular Volume 97.4 fl (80-100); Mean Platelet Volume 9.4 fl (7.4-10.4); Monocytes Absolute Auto 0.6 K/mm3 (0.1-0.6); Monocytes Percent Auto 7.3 % (2.6-8.5); Neutrophils Absolute Auto 4.3 K/mm3 (1.3-6.7); Neutrophils Percent Auto 53.5 % (45.5-73.1); Platelet Count Result 270 k/mm3 (150-375); Red Blood Count 4.24 M/mm3 (4.6-6.20); Red Cell Distribution Width 13.3 % (11.5-14.5)
[2021-05-04 07:11] LABS: Alveolar/Arterial O2 Gradient 117.2 mmHg; Base Excess ABG -6.8 mEq/l (+/-2.0); Fractional Inspired Oxygen 100 %; HCO3 ABG 21.4 mEq/l (22.0-26.0); Oxygen Content ABG 23.3 %vol (16.0-22.0); Oxygen Saturation ABG 99.9 % (95.0-100.0); Oxyhemoglobin 97.3 % THb (90.0-100.0); PCO2 ABG 52.9 mmHg (35.0-45.0); PO2 ABG 542.9 mmHg (80.0-100.0); PO2 FiO2 Ratio Arterial Blood 5.43 %
[2021-05-04 07:12] LABS: Device VENTILATOR; Modified Allen's Test Pass; Site Drawn RIGHT RADIAL; pH ABG 7.224 (7.350-7.450)
[2021-05-04] MEDS: PROPOFOL IV EMULSION 100 ML 18.6 MG IV CONT (07:12)
--- NOTE | 2021-05-04 07:12 | PC.NURSE ---
propofol drip started 30mcg/kg/min @0712, pt noted generalized tremoring, bilat pupils equal and pinpoint ST on monitor to 110's, 100% sats on vent, hypertensive
[2021-05-04 07:13] LABS: Arterial Blood Gas PEEP 8 cmH2O; Arterial Blood Gas Tidal Volume 450 ml; Arterial Blood Gas Vent Mode CMV; Arterial Blood Gas Ventilator rate 20 /MIN
[2021-05-04 07:18] LABS: Ethanol < 10 mg/dL (<10)
[2021-05-04 07:21] LABS: Add Urine Microscopic? YES; Appearance Urine Clear (Clear); Bilirubin Urine Negative (Negative); Blood Urine Negative (Negative); Color Urine Yellow (Yellow); Glucose Urine UA Negative (Negative); Ketones Urine Negative (Negative); Leukocyte Esterase Ur Negative LEU/UL (Negative); Nitrate Urine Negative (Negative); Protein Urine 2+ mg/dL (Negative); Specific Grav Ur 1.024 (1.001-1.035); Urobilinogen Urine Negative mg/dL (<2.0)
[2021-05-04 07:21] LABS: Partial Thromboplastin Time 24.9 SECONDS (22.3-36.8); Prothrombin Time 14.2 Seconds (11.1-14.7)
--- NOTE | 2021-05-04 07:21 | PC.NURSE ---
Report to oncoming shift RN
[2021-05-04 07:22] LABS: Albumin Level 4.1 g/dL (3.5-5.1); Alkaline Phosphatase 72 U/L (38-126); Anion Gap 19 mmol/L (8-16); Aspartate Amino Transferase 175 U/L (17-59); Bilirubin,Total 0.4 mg/dL (0.2-1.3); Blood Urea Nitrogen 16 mg/dL (9-20); Carbon Dioxide 20 mmol/L (22-30); Chloride 100 mmol/L (98-107); Estimated CRCL calculation 58 ml/min; Estimated Glomerular Filt Rate 39; Glucose 359 mg/dL (75-110); Magnesium 2.6 mg/dL (1.6-2.3); Potassium 5.6 mmol/L (3.4-5.0); Sodium 139 mmol/L (137-145)
[2021-05-04 07:23] LABS: Lactic Acid Reflex 8.7 mmol/L (0.7-2.1)
[2021-05-04 07:25] LABS: Mucus Urine Few /lpf; Squamous Epithelial Cell Urine Rare /hpf (Few)
[2021-05-04 07:31] LABS: Troponin I < 0.012 ng/mL (0.000-0.034)
[2021-05-04 07:32] LABS: Alanine Aminotransferase 123 U/L (4-50)
[2021-05-04 07:35] LABS: Barbiturate Screen Urine Negative (Negative); Benzodiazepines Screen Urine Positive (Negative)
[2021-05-04 07:36] LABS: Cannabinoid Screen Urine Positive (Negative); Cocaine Screen Urine Negative (Negative); Methadone Screen Urine Negative (Negative); Opiate Screen Urine Negative (Negative); Phencyclidine Screen Urine Negative (Negative)
[2021-05-04 07:51] LABS: Amphetamine Screen Urine Positive (Negative)
[2021-05-04] MEDS: fentaNYL CITRATE INJ (*CRX) 100 MCG/2 ML VIAL (08:28)
[2021-05-04] MEDS: fentaNYL CITRATE INJ (*CRX) 100 MCG/2 ML VIAL 40 MCG IV PUSH (08:30)
--- NOTE | 2021-05-04 08:30 | PC.NURSE ---
ED MD Dr. Lainez aware pt continuing to tremor and bite down on tube, breathing over vent and increased pressures. Will start Fentanyl drip per order. ST on monitor to 120's
[2021-05-04] MEDS: ETOMIDATE 20 MG/10 ML AMPUL (08:47)
--- NOTE | 2021-05-04 09:05 | PC.NURSE ---
ICU MD at bedside, order to increase propofol to 40mcg/kg/min and increased prn, start Levophed @5mcg/min. Pt continuing to have generalized tremors, ST rate in 130's, tachypneic (ETT secured by resp tech d/t pt clenching on tube)
[2021-05-04] MEDS: NOREPINEPHRINE 8 MG/D5W 250 ML 8 MG/250 ML BAG 9.38 MG IV CONT (09:11)
--- NOTE | 2021-05-04 10:00 | ECG_ITS ---
Measurements Intervals [place] Rate: 142 P: 76 GA: 128 QRS: 74 QRSD: 86 T: 69 QT: 267 QTc: 411 Interpretive Statements SINUS TACHYCARDIA DELAYED PRECORDIAL R/S TRANSITION ABNORMAL ECG Electronically Signed On 05-04-2021 15:53:23 CDT by Patel Guthrie D.O.
[2021-05-04 10:05] LABS: Reflex Lactic Acid Yes or No Add Lactic
--- NOTE | 2021-05-04 10:40 | ADMGEN ---
This patient, Joseph Carter Jr., was admitted to Intensive Care Unit-5. Patient/family oriented to hospital policies and general routines including ID bracelet, bed and alarms, visiting hours, pain management, procedures, bathroom and other care routines, personal items, smoking policy, room service/diet, and visiting hours. Information on how to activate the Rapid Response Team has been discussed. Patient/Family are encouraged to report perceived risks to care and to ask questions if they do not understand what they are told or what they should do.
--- NOTE | 2021-05-04 10:50 | WPDCNINT ---
Assessment and Plan Assessment and plan (1) Cardiac arrest: Code(s): I46.9 - Cardiac arrest, cause unspecified Status: Acute Assessment and Plan: Likely secondary to drug overdose Telemetry monitoring Serial troponin Check echocardiogram Monitor and replace electrolytes Respiratory and hemodynamic support (2) Acute respiratory failure: Code(s): J96.00 - Acute respiratory failure, unspecified whether with hypoxia or hypercapnia Status: Acute Assessment and Plan: Acute Respiratory failure secondary to cardiac arrest and anoxic brain injury Continue full mechanical ventilation support to prevent hypoxemia/hypercarbia and end organ damage. ABG and PCXR reviewed Repeat ABG Low tidal volume ventilation strategy to prevent volutrauma Will attempt SBT when ready to wean. Zosyn for aspiration pneumonia (3) Anoxic brain injury: Code(s): G93.1 - Anoxic brain damage, not elsewhere classified Status: Acute Assessment and Plan: Patient clearly has severe anoxic brain injury as evidenced from his head CT on presentation along with cerebral edema Patient will be started on hypothermia protocol for next 24 hours Consult neurology Check EEG Hypertonic saline (4) Cerebral edema: Code(s): G93.6 - Cerebral edema Status: Acute Assessment and Plan: Start 3% saline Serial BMPs (5) Suspected COVID-19 virus infection: Code(s): Z20.822 - Contact with and (suspected) exposure to COVID-19 Status: Acute Assessment and Plan: COVID-19 suspected. SARS-CoV-2 PCR sent and results pending Patient is in Airborne, Droplet and Contact Isolation (6) Aspiration pneumonia: Code(s): J69.0 - Pneumonitis due to inhalation of food and vomit Status: Acute Assessment and Plan: Sputum and blood culture Zosyn (7) Priapism: Code(s): N48.30 - Priapism, unspecified Status: Acute Assessment and Plan: Consult urology (8) Shock: Code(s): R57.9 - Shock, unspecified Status: Acute Assessment and Plan: Sepsis versus hypovolemic versus sedation Patient was given another IV fluid bolus in the ER Continue IV fluids Levophed, Monitor lactic acid level Empiric antibiotics (9) Encephalopathy: Code(s): G93.40 - Encephalopathy, unspecified Status: Acute Assessment and Plan: Secondary to drugs and anoxic brain injury Currently sedated with propofol for therapeutic hypothermia protocol (10) KATJA (acute kidney injury): Code(s): N17.9 - Acute kidney failure, unspecified Status: Acute Assessment and Plan: Likely secondary to shock and hypovolemia Monitor intake output and electrolytes Patient is on IV fluids (11) Hyperkalemia: Code(s): E87.5 - Hyperkalemia Status: Acute Assessment and Plan: Recheck BMP at this time and treat depending on repeat potassium level Kayexalate (12) Polysubstance abuse: Code(s): F19.10 - Other psychoactive substance abuse, uncomplicated Status: Acute Assessment and Plan: UDS was positive for benzodiazepine cannabinoids and Amphetamine Patient also has history of opioid use and overdose in the past Additional Plan DVT prophylaxis -Lovenox Stress ulcer prophylaxis -Pepcid Nutrition -NPO Code Status - Full Code I tried to call the 2 numbers listed in patient's chart but unable to get hold of anyone. Total Critical Care Time - 50 minutes Due to a high probability of clinically significant, life threatening deterioration, the patient required my highest level of preparedness to intervene emergently and I personally spent this critical care time directly and personally managing the patient. This critical care time included obtaining a history; examining the patient; pulse oximetry; ordering and review of studies; arranging urgent treatment with development of a management plan; evaluation of patient's response to aldo
[2021-05-04] MEDS: PROPOFOL IV EMULSION 100 ML 31.05 MG IV CONT ×2 (11:00→13:35)
--- NOTE | 2021-05-04 11:32 | PC.NURSE ---
Dr. Arango at bedside to evaluate priapism.
[2021-05-04] MEDS: ENOXAPARIN 40 MG/0.4 ML SYRINGE SUB-Q (11:44)
[2021-05-04] MEDS: CENTRAL LINE FLUSH 10 ML IV PUSH ×3 (11:45→22:35)
[2021-05-04] MEDS: SODIUM CHLORIDE 3% 500 ML 50 ML IV CONT ×2 (11:45→22:35)
[2021-05-04 11:48] LABS: Hematocrit 46.4 % (42.0-52.0); Mean Corpuscular HGB Conc 32.3 g/dl (32-36); Mean Corpuscular Hemoglobin 30.3 pg (26-34); Mean Corpuscular Volume 93.7 fl (80-100); Mean Platelet Volume 8.8 fl (7.4-10.4); Platelet Count Result 298 k/mm3 (150-375); Red Blood Count 4.95 M/mm3 (4.6-6.20); Red Cell Distribution Width 13.4 % (11.5-14.5); White Blood Count 15.4 K/mm3 (4.5-10.0)
--- NOTE | 2021-05-04 11:49 | PM.IMHP ---
H&P: HPI History of Present Illness Date/Time: 05/04/21 11:49 Chief Complaint: Cardiac Arrest with ROSC Narrative: 41yo male with known hx of drug abuse who was brought in by EMS after being found in cardiac arrest. Patient unable to provide hx. Majority of the history obtained from the ED notes, ED doctor and web methods developer who has spoken with family. Patient's is currently 33wks and states she discovered infidelity on the part of the patient and asked him to leave the house a few days ago. Patient has been at a dopa house recently. He has a long hx of drug use mostly using Meth. He was seen her in November 2020 for a drug overdose; he recovered and absconded from the ED. He has had multiple treatments at drug rehabs in the past most recently in January where he received a COVID vaccine. He also has been using fentanyl as well more recently. EMS was called to the scene and found the patient down without pulse. CPR started and ROSC achieved after about 20 minutes. He did receive multiple doses of narcan and epinephrine. Unclear on total amount of down time. Patient brought to the ED. In the ED, BP 89/76 so central line placed and Levophed started. CT brain already showing diffuse decreased borrego-white matter differentiation and narrowing of the sulci and ventricles suggesting diffuse cerebral edema likely related to global anoxic brain injury. CXR showing IRIS infiltrate. WBC 15. ABG 7.22/53/543 on MV. Cr 1.9, Glucose 359, LA 8.7 with elevated LFTs. UDS positive for Amph, Benzos, Cannabis. Broad spectrum abx ordered. He is currently intubated and sedated. Review of Systems Review of Systems: ROS unobtainable: Yes unobtainable due to endotracheal tube and unobtainable due to mental status PMFSH Past Medical History Medical History (Updated 05/04/21 @ 12:33 by Tuan Shaver MD) PTSD (post-traumatic stress disorder) Surgical History Surgical History History of cholecystectomy Hx of shoulder surgery S/P insertion of spinal cord stimulator Family History Family History (Updated 05/04/21 @ 12:07 by Tuan Shaver MD) Other Family history unobtainable Social History Social History (Updated 05/04/21 @ 12:09 by Tuan Shaver MD) Social History: Patient smokes 1ppd. Drug history as above. [place] war vet. Was living with his until recently Smoking packs per day: 0.5 Smoking cigarettes per day: 10.0 Smoking status: Unknown if ever smoked Alcohol intake: former Spiritual care concerns: No Meds Home Medications and Allergies Home Medications Medication Instructions Recorded Confirmed Type No Home Medications 08/10/20 05/04/21 History Allergies Allergy/AdvReac Type Severity Reaction Status Date / Time tramadol Allergy Intermediate HIVES Verified 08/10/20 16:42 Vital Signs Vital Signs - 24 hr 05/04/21 06:30 05/04/21 06:47 05/04/21 07:12 Temperature 97.5 F L Pulse Rate 101 H 103 H 114 H Respiratory Rate 25 H Blood Pressure 89/76 L Pulse Oximetry 88 L 93 05/04/21 07:30 05/04/21 07:32 05/04/21 08:15 Temperature Pulse Rate 112 H 110 H 121 H Respiratory Rate 25 H 22 H 23 H Blood Pressure 117/75 111/61 Pulse Oximetry 100 98 05/04/21 08:18 05/04/21 08:40 05/04/21 08:45 Temperature Pulse Rate 120 H 135 H 132 H Respiratory Rate 25 H 30 H 31 H Blood Pressure 111/57 L Pulse Oximetry 98 05/04/21 08:50 05/04/21 09:03 05/04/21 09:08 Temperature Pulse Rate 134 H 136 H 136 H Respiratory Rate 27 H 32 H Blood Pressure 81/59 L Pulse Oximetry 98 98 05/04/21 09:11 05/04/21 09:35 05/04/21 10:00 Temperature Pulse Rate 136 H 138 H 140 H Respiratory Rate 29 H 26 H Blood Pressure 81/59 L 118/85 Pulse Oximetry 100 05/04/21 10:30 05/04/21 11:00 Temperature 100.5 F H Pulse Rate 143 H 141 H Respiratory Rate 27 H Blood Pressure 134/101 H
[2021-05-04 12:01] LABS: Lactic Acid Reflex 1.8 mmol/L (0.7-2.1)
[2021-05-04 12:01] LABS: Creatine Kinase 134 U/L (55-170); Magnesium 1.8 mg/dL (1.6-2.3)
[2021-05-04 12:02] LABS: Alanine Aminotransferase 161 U/L (4-50); Albumin Level 4.2 g/dL (3.5-5.1); Alkaline Phosphatase 100 U/L (38-126); Anion Gap 11 mmol/L (8-16); Aspartate Amino Transferase 160 U/L (17-59); Bilirubin,Total 0.3 mg/dL (0.2-1.3); Blood Urea Nitrogen 21 mg/dL (9-20); Calcium 7.7 mg/dL (8.4-10.2); Carbon Dioxide 22 mmol/L (22-30); Chloride 108 mmol/L (98-107); Estimated CRCL calculation 58 ml/min; Estimated Glomerular Filt Rate 39; Glucose 131 mg/dL (75-110); Potassium 4.7 mmol/L (3.4-5.0); Sodium 141 mmol/L (137-145)
[2021-05-04 12:09] LABS: Prothrombin Time 13.5 Seconds (11.1-14.7)
[2021-05-04] MEDS: SODIUM CHLORIDE 0.9% IV 1,000 ML 125 ML IV CONT (12:09)
[2021-05-04 12:20] LABS: Troponin I 0.248 ng/mL (0.000-0.034)
[2021-05-04 12:27] LABS: Glucose Point of Care 150 mg/dl (65-105)
[2021-05-04 12:27] LABS: Glucose Point of Care 171 mg/dl (65-105)
[2021-05-04 13:42] LABS: Glucose Point of Care 185 mg/dl (65-105)
[2021-05-04] MEDS: dexmedeTOMIDine 400 MCG/100 ML 400 MCG/100 ML BAG 5.18 MCG IV CONT (14:21)
[2021-05-04 14:25] LABS: Glucose Point of Care 200 mg/dl (65-105)
--- NOTE | 2021-05-04 14:38 | WPDURCON ---
Assessment and Plan Assessment and plan (1) Priapism: Code(s): N48.30 - Priapism, unspecified Status: Acute Assessment and Plan: Spontaneous resolution of priapism likely from systemic ephedrine used during the course of resuscitation. Urology Consult Note HPI Date Seen: 05/04/21 Requesting Physician: Meng Shaver MD Primary Care Provider: [facility] Consult Narrative Narrative: Joseph Carter Jr. is a 41 year old male with a history of a polysubstance abuse who suffered a cardiac arrest outside hospital today. He had an undetermined period of anoxia prior to resuscitation. Either during evaluation in the emergency department or in the ICU, reportedly, he had an erection that seemed not to go away, prompting consultation for priapism. There is some suggestion that he has a history of priapism in the past, although he has never been seen by partners of mine. With initial examination, within 30 minutes of recently consultation, his penis had detumesced. Review of Systems Review of Systems: ROS unobtainable: Yes unobtainable due to endotracheal tube PMFSH Past Medical History Medical History PTSD (post-traumatic stress disorder) Surgical History Surgical History History of cholecystectomy Hx of shoulder surgery S/P insertion of spinal cord stimulator Family History Family History Other Family history unobtainable Social History Social History Social History: Patient smokes 1ppd. Drug history as above. [place] war vet. Was living with his until recently Smoking packs per day: 0.5 Smoking cigarettes per day: 10.0 Smoking status: Unknown if ever smoked Alcohol intake: former Spiritual care concerns: No Meds Home Medications and Allergies Home Medications Medication Instructions Recorded Confirmed Type No Home Medications 08/10/20 05/04/21 History Allergies Allergy/AdvReac Type Severity Reaction Status Date / Time tramadol Allergy Intermediate HIVES Verified 08/10/20 16:42 Vital Signs Vital Signs - 24 hr 05/04/21 06:30 05/04/21 06:47 05/04/21 07:12 Temperature 97.5 F L Pulse Rate 101 H 103 H 114 H Respiratory Rate 25 H Blood Pressure 89/76 L Pulse Oximetry 88 L 93 05/04/21 07:30 05/04/21 07:32 05/04/21 08:15 Temperature Pulse Rate 112 H 110 H 121 H Respiratory Rate 25 H 22 H 23 H Blood Pressure 117/75 111/61 Pulse Oximetry 100 98 05/04/21 08:18 05/04/21 08:40 05/04/21 08:45 Temperature Pulse Rate 120 H 135 H 132 H Respiratory Rate 25 H 30 H 31 H Blood Pressure 111/57 L Pulse Oximetry 98 05/04/21 08:50 05/04/21 09:03 05/04/21 09:08 Temperature Pulse Rate 134 H 136 H 136 H Respiratory Rate 27 H 32 H Blood Pressure 81/59 L Pulse Oximetry 98 98 05/04/21 09:11 05/04/21 09:35 05/04/21 10:00 Temperature Pulse Rate 136 H 138 H 140 H Respiratory Rate 29 H 26 H Blood Pressure 81/59 L 118/85 Pulse Oximetry 100 05/04/21 10:30 05/04/21 11:00 05/04/21 14:21 Temperature 100.5 F H Pulse Rate 143 H 141 H 113 H Respiratory Rate 27 H 23 H Blood Pressure 134/102 H Pulse Oximetry 100 100 Exam Const: General: no acute distress GI: Inspection: non-distended GI Palp: No abdominal tenderness and No Guarding due to palpation present (GI) Auscultation: normal bowel sounds : Penis: Yes normal penis Urinary Catheter: Urinary Catheter: patent and draining and urine clear Results Labs CBC & Chem 7: 05/04/21 11:33 05/04/21 11:33 Labs: Short CBC 05/04/21 05/04/21 Range/Units 06:53 11:33 WBC 8.0 15.4 H (4.5-10.0) K/mm3 Hgb 12.9 L 15.0 (14.0-18.0) g/dL Hct 41.3 L 46.4 (42.0-52.0) % Plt Count 270
[2021-05-04 15:17] LABS: Glucose Point of Care 120 mg/dl (65-105)
[2021-05-04 15:31] LABS: Alveolar/Arterial O2 Gradient 105.5 mmHg; Base Excess ABG -3.4 mEq/l (+/-2.0); Carboxyhemoglobin 0.3 % THb (0-2.0); Fractional Inspired Oxygen 50 %; HCO3 ABG 20.4 mEq/l (22.0-26.0); Methemoglobin ABG 0.4 %THb (0-1.5); Oxygen Content ABG 22.1 %vol (16.0-22.0); Oxygen Saturation ABG 99.4 % (95.0-100.0); Oxyhemoglobin 98.2 % THb (90.0-100.0); PCO2 ABG 33.8 mmHg (35.0-45.0); PO2 FiO2 Ratio Arterial Blood 4.26 %; Reduced Hemoglobin 1.1 %THb (0-5.0); Total Hemoglobin 15.7 g/dL (12.0-18.0); pH ABG 7.399 (7.350-7.450)
[2021-05-04 15:35] LABS: Arterial Blood Gas PEEP 8 cmH2O; Arterial Blood Gas Tidal Volume 450 ml; Arterial Blood Gas Vent Mode CMV; Arterial Blood Gas Ventilator rate 20 /MIN; Device VENTILATOR; Modified Allen's Test Pass; Site Drawn RIGHT RADIAL
[2021-05-04 15:40] LABS: HIV 1/2 Ab P24 Ag Result Negative (Negative)
[2021-05-04 16:15] LABS: Hepatitis B Surface Antigen Negative (Negative)
[2021-05-04 16:20] LABS: HAV RESULT Negative (Negative)
[2021-05-04 16:32] LABS: Hepatitis B Surface Anti Res Positive; Hepatitis C Virus Antibody Reactive (Negative)
[2021-05-04] MEDS: ASPIRIN 325 MG TABLET FEED TUBE (16:43)
[2021-05-04] MEDS: PROPOFOL IV EMULSION 100 ML 24.84 MG IV CONT ×2 (16:51→20:40)
[2021-05-04 17:00] LABS: Glucose Point of Care 99 mg/dl (65-105)
--- NOTE | 2021-05-04 18:00 | ECG_ITS ---
Measurements Intervals [place] Rate: 69 P: 37 CT: 157 QRS: 62 QRSD: 120 T: 57 QT: 481 QTc: 517 Interpretive Statements SINUS RHYTHM INCOMPLETE RIGHT BUNDLE BRANCH BLOCK ST ELEVATION IN DIFFUSE LEADS- PROBABLY EARLY REPOLARIZATION ABNORMALITY PROLONGED QT INTERVAL ABNORMAL ECG Electronically Signed On 05-05-2021 7:51:37 CDT by Patel Guthrie D.O.
[2021-05-04 18:10] LABS: Glucose Point of Care 113 mg/dl (65-105)
[2021-05-04 18:42] LABS: SARS-CoV-2 RNA PCR Negative
[2021-05-04 18:50] LABS: Glucose Point of Care 136 mg/dl (65-105)
[2021-05-04 19:12] LABS: Anion Gap 11 mmol/L (8-16); Blood Urea Nitrogen 21 mg/dL (9-20); Calcium 8.9 mg/dL (8.4-10.2); Carbon Dioxide 21 mmol/L (22-30); Chloride 110 mmol/L (98-107); Estimated CRCL calculation 69 ml/min; Estimated Glomerular Filt Rate 48; Glucose 133 mg/dL (75-110); Magnesium 2.2 mg/dL (1.6-2.3); Phosphorus 2.5 mg/dL (2.5-4.5); Potassium 4.5 mmol/L (3.4-5.0); Sodium 142 mmol/L (137-145)
--- NOTE | 2021-05-04 19:28 | PC.NURSE ---
Patient achieved hypothermia goal temperature at 1800, temperature noted to be 90.6 degrees/32.[address] Jones advised. Patient covid test noted to be negative, patient spouse notified.
[2021-05-04 19:42] LABS: Troponin I 0.184 ng/mL (0.000-0.034)
[2021-05-04 19:47] LABS: Glucose Point of Care 130 mg/dl (65-105)
[2021-05-04] MEDS: FAMOTIDINE 20 MG/2 ML VIAL IV PUSH (20:16)
[2021-05-04 20:20] LABS: Glucose Point of Care 143 mg/dl (65-105)
[2021-05-04 21:31] LABS: Glucose Point of Care 115 mg/dl (65-105)
[2021-05-04 22:19] LABS: Hematocrit 44.9 % (42.0-52.0); Hemoglobin 14.5 g/dL (14.0-18.0); Mean Corpuscular HGB Conc 32.3 g/dl (32-36); Mean Corpuscular Hemoglobin 30.9 pg (26-34); Mean Corpuscular Volume 95.7 fl (80-100); Mean Platelet Volume 8.9 fl (7.4-10.4); Platelet Count Result 249 k/mm3 (150-375); Red Blood Count 4.69 M/mm3 (4.6-6.20); Red Cell Distribution Width 13.4 % (11.5-14.5); White Blood Count 17.7 K/mm3 (4.5-10.0)
[2021-05-04 22:21] LABS: Glucose Point of Care 117 mg/dl (65-105)
[2021-05-04 22:28] LABS: Partial Thromboplastin Time 27.7 SECONDS (22.3-36.8)
[2021-05-04 22:29] LABS: Lactic Acid Reflex 1.4 mmol/L (0.7-2.1)
[2021-05-04 22:30] LABS: Anion Gap 7 mmol/L (8-16); Blood Urea Nitrogen 19 mg/dL (9-20); Calcium 8.7 mg/dL (8.4-10.2); Carbon Dioxide 23 mmol/L (22-30); Chloride 114 mmol/L (98-107); Creatine Kinase 113 U/L (55-170); Estimated CRCL calculation 73 ml/min; Estimated Glomerular Filt Rate 52; Glucose 122 mg/dL (75-110); Sodium 144 mmol/L (137-145)
[2021-05-04 23:12] LABS: Base Excess ABG -12.7 mEq/l (+/-2.0); Carboxyhemoglobin 0.3 % THb (0-2.0); Fractional Inspired Oxygen 30 %; HCO3 ABG 14.2 mEq/l (22.0-26.0); Methemoglobin ABG 1.8 %THb (0-1.5); Oxygen Content ABG 5.6 %vol (16.0-22.0); PCO2 ABG 36.1 mmHg (35.0-45.0); Reduced Hemoglobin 65.9 %THb (0-5.0); Total Hemoglobin 12.5 g/dL (12.0-18.0)
[2021-05-04] MEDS: PHENYLEPHRINE HCL INJ 10 MG, SODIUM CHLORIDE 0.9% INJ 19 ML I-CAVERN (23:15)
[2021-05-04 23:16] LABS: pH ABG 7.232 (7.350-7.450)
[2021-05-04 23:18] LABS: PO2 ABG 22.8 mmHg (80.0-100.0)
[2021-05-04 23:19] LABS: Oxygen Saturation ABG 31.3 % (95.0-100.0)
[2021-05-04 23:22] LABS: Device VENTILATOR
[2021-05-04 23:23] LABS: Arterial Blood Gas PEEP 8 cmH2O; Arterial Blood Gas Tidal Volume 450 ml; Arterial Blood Gas Vent Mode CMV; Arterial Blood Gas Ventilator rate 20 /MIN
[2021-05-05] VITALS (37 sets, daily range): BP systolic 83–164; BP diastolic 48–117; PULSE 62–115; RESP 20–40; TEMP 32.3–35; O2SAT 98–100
--- NOTE | 2021-05-05 00:12 | PM.PROC ---
Procedure Note - Detailed Date of procedure: 05/05/21 Pre-op diagnosis: cardiac arrest Post-op diagnosis: same Procedure performed: Corporal aspiration Irrigation with phenylephrine Description of procedure: After receiving telephone consent from the patient's Melia, we prepped the penis with betadine. An 18g angiocatheter was inserted at the 3:00 position towards the base. Aspiration was performed using a saline flush. A blood gas was sent and demonsrated findings consistent with ischemic pripaism. I then elected to irrigated with 500 mcg/mL phenylephrine (mixed by pharmacy). 1.0 cc was injected and aspiration continued. The patient quikdly detmesced. His BP jerry slightly, but recovered. The injection site was dressed with a sterile dressing and coban pressure dressing. Anesthesia: GETA Surgeon: Emilio Casey MD Estimated blood loss (mL): 10 Drains: No Packing: No Pathology: yes (ABG) Complications: No immediate complications Condition: critical Disposition: ICU Findings: pH 7.232, pO2 22.8
--- NOTE | 2021-05-05 00:19 | PM.EVENT ---
Event Note Event Note Event Note: I was contacted by Deepika regarding priapism lasting 4 hours. She reported a rigid and erect phallus. On physical examination, I agree. I discussed with the patient's , she reports he has a long [facility] I explained corporal aspiration and irrigation and she agreed with the procedure after a discussion of the benefits, risks and alternatives. With the help of Deepika, the aforementioned procedure was performed with detumescence noted. will continue to follow. Call if recurrence of priapism.
[2021-05-05 00:39] LABS: Alanine Aminotransferase 138 U/L (4-50); Albumin Level 3.7 g/dL (3.5-5.1); Alkaline Phosphatase 93 U/L (38-126); Anion Gap 8 mmol/L (8-16); Aspartate Amino Transferase 107 U/L (17-59); Bilirubin,Total 0.4 mg/dL (0.2-1.3); Blood Urea Nitrogen 19 mg/dL (9-20); Calcium 8.7 mg/dL (8.4-10.2); Carbon Dioxide 21 mmol/L (22-30); Chloride 115 mmol/L (98-107); Estimated CRCL calculation 78 ml/min; Estimated Glomerular Filt Rate 56; Glucose 124 mg/dL (75-110); INR 0.9; Phosphorus 2.2 mg/dL (2.5-4.5); Potassium 4.1 mmol/L (3.4-5.0); Prothrombin Time 13.1 Seconds (11.1-14.7); Sodium 144 mmol/L (137-145)
[2021-05-05 01:23] LABS: Glucose Point of Care 134 mg/dl (65-105)
[2021-05-05 01:23] LABS: Glucose Point of Care 119 mg/dl (65-105)
[2021-05-05] MEDS: MANNITOL 20% 250 ML 50 ML IVPB (01:34)
[2021-05-05] MEDS: PROPOFOL IV EMULSION 100 ML 21.74 MG IV CONT (01:35)
[2021-05-05 01:46] LABS: Glucose Point of Care 146 mg/dl (65-105)
--- NOTE | 2021-05-05 02:00 | ECG_ITS ---
Measurements Intervals [place] Rate: 75 P: 34 KS: 161 QRS: 49 QRSD: 108 T: 40 QT: 478 QTc: 536 Interpretive Statements SINUS RHYTHM VOLTAGE CRITERIA FOR LVH ST ELEVATION IN DIFFUSE LEADS- PROBABLY EARLY REPOLARIZATION ABNORMALITY PROLONGED QT INTERVAL ABNORMAL ECG Electronically Signed On 05-05-2021 7:50:24 CDT by Patel Guthrie D.O.
[2021-05-05 02:58] LABS: Glucose Point of Care 136 mg/dl (65-105)
[2021-05-05 03:47] LABS: Glucose Point of Care 121 mg/dl (65-105)
[2021-05-05 04:56] LABS: Glucose Point of Care 124 mg/dl (65-105)
[2021-05-05 05:13] LABS: Lactic Acid Reflex 1.4 mmol/L (0.7-2.1)
[2021-05-05 05:30] LABS: Anion Gap 7 mmol/L (8-16); Blood Urea Nitrogen 17 mg/dL (9-20); Calcium 8.3 mg/dL (8.4-10.2); Carbon Dioxide 20 mmol/L (22-30); Chloride 118 mmol/L (98-107); Estimated CRCL calculation 84 ml/min; Estimated Glomerular Filt Rate > 60; Glucose 119 mg/dL (75-110); Magnesium 2.1 mg/dL (1.6-2.3); Potassium 4.1 mmol/L (3.4-5.0); Sodium 145 mmol/L (137-145)
[2021-05-05 05:52] LABS: Alveolar/Arterial O2 Gradient 66.5 mmHg; Base Excess ABG -6.1 mEq/l (+/-2.0); Fractional Inspired Oxygen 30 %; Methemoglobin ABG 0.1 %THb (0-1.5); Oxygen Content ABG 19.5 %vol (16.0-22.0); Oxygen Saturation ABG 97.5 % (95.0-100.0); Oxyhemoglobin 97.2 % THb (90.0-100.0); PCO2 ABG 36.4 mmHg (35.0-45.0); PO2 ABG 104.6 mmHg (80.0-100.0); PO2 FiO2 Ratio Arterial Blood 3.49 %; Reduced Hemoglobin 2.7 %THb (0-5.0); Total Hemoglobin 14.2 g/dL (12.0-18.0); pH ABG 7.336 (7.350-7.450)
[2021-05-05 05:54] LABS: Arterial Blood Gas PEEP 8 cmH2O; Arterial Blood Gas Tidal Volume 450 ml; Arterial Blood Gas Vent Mode CMV; Arterial Blood Gas Ventilator rate 20 /MIN; Device VENTILATOR; Modified Allen's Test Unable to perform; Site Drawn RIGHT RADIAL
[2021-05-05] MEDS: SODIUM CHLORIDE 0.9% IV 1,000 ML 50 ML IV CONT (05:59)
[2021-05-05] MEDS: PROPOFOL IV EMULSION 100 ML 12.42 MG IV CONT (06:01)
[2021-05-05] MEDS: CENTRAL LINE FLUSH 10 ML IV PUSH ×4 (06:01→20:20)
[2021-05-05 06:44] LABS: Glucose Point of Care 138 mg/dl (65-105)
[2021-05-05 06:44] LABS: Glucose Point of Care 121 mg/dl (65-105)
--- NOTE | 2021-05-05 07:44 | WPDUROPN2 ---
Progress Note: A&P Assessment and Plan (1) Priapism: Code(s): N48.30 - Priapism, unspecified Status: Acute Assessment and Plan: Recurrent priapism this morning. Responded to aspiration 8-10cc venous blood and 1cc injection of 500mcg phenylephrine. Subjective Subjective Date/Time Seen: 05/05/21 07:44 Unresponsive - recurrent priapism this am Review of Systems Review of Systems: ROS unobtainable: Yes unobtainable due to mental status Exam : Penis: Yes priapism Objective Data Vital Signs Vital Signs: Vital Signs - 24 hr 05/04/21 08:15 05/04/21 08:18 05/04/21 08:40 Temperature Pulse Rate 121 H 120 H 135 H Respiratory Rate 23 H 25 H 30 H Blood Pressure 111/61 Pulse Oximetry 98 05/04/21 08:45 05/04/21 08:50 05/04/21 09:03 Temperature Pulse Rate 132 H 134 H 136 H Respiratory Rate 31 H 27 H Blood Pressure 111/57 L 81/59 L Pulse Oximetry 98 98 98 05/04/21 09:08 05/04/21 09:11 05/04/21 09:35 Temperature Pulse Rate 136 H 136 H 138 H Respiratory Rate 32 H 29 H Blood Pressure 81/59 L Pulse Oximetry 05/04/21 10:00 05/04/21 10:30 05/04/21 11:00 Temperature 100.5 F H Pulse Rate 140 H 143 H 141 H Respiratory Rate 26 H 27 H Blood Pressure 118/85 134/102 H Pulse Oximetry 100 100 100 05/04/21 12:00 05/04/21 13:00 05/04/21 14:00 Temperature 101.2 F H 100.3 F H 98.9 F Pulse Rate 82 125 H 113 H Respiratory Rate 20 28 H 23 H Blood Pressure 123/89 125/85 133/93 H Pulse Oximetry 100 100 100 05/04/21 14:19 05/04/21 14:21 05/04/21 15:00 Temperature 97.5 F L Pulse Rate 113 H 113 H 105 H Respiratory Rate 23 H 25 H Blood Pressure 120/90 Pulse Oximetry 100 100 05/04/21 16:00 05/04/21 16:51 05/04/21 17:00 Temperature 95.0 F L 94.3 F L Pulse Rate 69 85 85 Respiratory Rate 20 20 20 Blood Pressure 134/97 H 139/106 H Pulse Oximetry 100 100 05/04/21 17:27 05/04/21 18:00 05/04/21 19:00 Temperature 90.6 F L 90.6 F L Pulse Rate 82 69 69 Respiratory Rate 20 20 Blood Pressure 135/107 H 130/100 H Pulse Oximetry 100 100 99 05/04/21 20:00 05/04/21 20:10 05/04/21 20:40 Temperature 90.6 F L Pulse Rate 78 83 78 Respiratory Rate 20 20 Blood Pressure 133/98 H Pulse Oximetry 99 99 05/04/21 21:00 05/04/21 22:00 05/04/21 23:00 Temperature 92.3 F L 92.6 F L 92.6 F L Pulse Rate 83 77 67 Respiratory Rate 20 20 20 Blood Pressure 147/109 H 137/110 H 131/107 H Pulse Oximetry 98 98 100 05/05/21 00:00 05/05/21 00:10 05/05/21 01:00 Temperature 90.9 F L 91.9 F L Pulse Rate 66 71 77 Respiratory Rate 20 20 Blood Pressure 128/107 H 127/100 H Pulse Oximetry 99 99 99 05/05/21 01:35 05/05/21 02:00 05/05/21 02:20 Temperature 92 F L Pulse Rate 80 80 72 Respiratory Rate 20 20 Blood Pressure 134/101 H Pulse Oximetry 99 99 05/05/21 03:00 05/05/21 04:00 05/05/21 05:00 Temperature 91.9 F L 91.4 F L 92.6 F L Pulse Rate 73 68 77 Respiratory Rate 20 20 20 Blood Pressure 114/86 106/80 112/79 Pulse Oximetry 99 99 100 05/05/21 05:05 05/05/21 06:00 05/05/21 06:01 Temperature 92.6 F L Pulse Rate 79 78 78 Respiratory Rate 20 20 Blood Pressure 113/86 Pulse Oximetry 100 100 05/05/21 07:00 Temperature 91.9 F L Pulse Rate 71 Respiratory Rate 20 Blood Pressure 112/85 Pulse Oximetry 100 Intake/Output Intake/Output: Intake & Output 05/02/21 05/03/21 05/04/21 05/05/21 23:59 23:59 23:59 23:59 Intake Total 950 1918 Output Total 9710 6919 Balance -729 733 Meds/Results Medications: Active Medications Generic Name Dose Route Start Last Admin Trade Name Freq PRN Reason Stop Dose Admin Aspirin 325 mg 05/04/21 13:11 05/04/21 16:43 Aspirin 325 Mg Tablet FEED TUBE 325 mg DAILY@0800 MATEO Administration Phenylephrine HCl 10 mg/ 0 mg 05/04/21 11:04 05/04/21 23:15 Sodium Chloride 19 ml I-CAVERN 1 ml PRN PRN Administration PRIAPISM Dextrose 12.5 gm 05/04/21 10:23 De
[2021-05-05] MEDS: SODIUM CHLORIDE 3% 500 ML 75 ML IV CONT ×2 (08:00→14:54)
[2021-05-05 08:08] LABS: Glucose Point of Care 155 mg/dl (65-105)
[2021-05-05 08:08] LABS: Glucose Point of Care 135 mg/dl (65-105)
[2021-05-05 08:24] LABS: Anion Gap 7 mmol/L (8-16); Blood Urea Nitrogen 17 mg/dL (9-20); Calcium 8.7 mg/dL (8.4-10.2); Carbon Dioxide 19 mmol/L (22-30); Chloride 121 mmol/L (98-107); Estimated CRCL calculation 84 ml/min; Estimated Glomerular Filt Rate > 60; Glucose 141 mg/dL (75-110); Potassium 2.6 mmol/L (3.4-5.0); Sodium 147 mmol/L (137-145)
[2021-05-05] MEDS: POTASSIUM BICARBONATE 25 MEQ TABEF 50 MEQ PO (08:47)
[2021-05-05] MEDS: ASPIRIN 325 MG TABLET FEED TUBE (09:00)
[2021-05-05] MEDS: FAMOTIDINE 20 MG/2 ML VIAL IV PUSH ×2 (09:01→20:20)
[2021-05-05] MEDS: ENOXAPARIN 40 MG/0.4 ML SYRINGE SUB-Q (09:01)
--- NOTE | 2021-05-05 09:05 | WPDINTPN ---
Progress Note: A&P Assessment and Plan (1) Anoxic brain injury: Code(s): G93.1 - Anoxic brain damage, not elsewhere classified Status: Acute Assessment and Plan: Patient clearly had severe anoxic brain injury on presentation as evidenced from his head CT on presentation along with cerebral edema. Patient was started on TTM protocol and reached his goal temperature at 6:00 p.m. He was also started on 3% saline to drive his sodium up Patient was sedated with propofol Yesterday patient was breathing over the ventilator Overnight he had a dilated pupil on the left. Repeat head CT was done IMPRESSION: Global anoxic brain injury with worsening cerebral and cerebellar edema, effacement of ventricles and developing tonsillar uncal herniation. Infarcted basal ganglia and caudate bilaterally. Mannitol was given overnight. 23% saline is not available Continue 3% saline to drive the sodium up to 150. Continue mannitol with serial osmolarity monitoring Normal saline has been discontinued Neurology consult is pending. EEG is pending I suspect patient may eventually proceed to brain . Since patient was on propofol at this time we will continue TTM protocol and hold all sedation I will discuss with neurology regarding timing of EEG and discontinuing TTM protocol and rewarming to evaluate for brain . I will also discuss with patient's family today (2) Cerebral edema: Code(s): G93.6 - Cerebral edema Status: Acute Assessment and Plan: Start 3% saline Serial BMPs (3) Cardiac arrest: Code(s): I46.9 - Cardiac arrest, cause unspecified Status: Acute Assessment and Plan: Likely secondary to drug overdose Continue Telemetry monitoring Mild elevation in troponin likely secondary to cardiac arrest and not a primary ACS etiology. He is on aspirin Pending echocardiogram Monitor and replace electrolytes Respiratory and hemodynamic support (4) Acute respiratory failure: Code(s): J96.00 - Acute respiratory failure, unspecified whether with hypoxia or hypercapnia Status: Acute Assessment and Plan: Acute Respiratory failure secondary to cardiac arrest and anoxic brain injury Continue full mechanical ventilation support to prevent hypoxemia/hypercarbia and end organ damage. ABG and PCXR reviewed He is down to 30% FiO2 Zosyn for aspiration pneumonia (5) Suspected COVID-19 virus infection: Code(s): Z20.822 - Contact with and (suspected) exposure to COVID-19 Status: Acute Assessment and Plan: COVID-19 was suspected. SARS-CoV-2 PCR was negative (6) Aspiration pneumonia: Code(s): J69.0 - Pneumonitis due to inhalation of food and vomit Status: Acute Assessment and Plan: Sputum and blood culture Zosyn (7) Priapism: Code(s): N48.30 - Priapism, unspecified Status: Acute Assessment and Plan: Corporal aspiration and irrigation was performed by Urology last night (8) Shock: Code(s): R57.9 - Shock, unspecified Status: Acute Assessment and Plan: Sepsis versus hypovolemic versus sedation Patient was given another IV fluid bolus in the ER Discontinue further IV fluids Lactate has normalized (9) Encephalopathy: Code(s): G93.40 - Encephalopathy, unspecified Status: Acute Assessment and Plan: Secondary to drugs and anoxic brain injury (10) KATJA (acute kidney injury): Code(s): N17.9 - Acute kidney failure, unspecified Status: Acute Assessment and Plan: Likely secondary to shock and hypovolemia Monitor intake output and electrolytes Improved (11) Hyperkalemia: Code(s): E87.5 - Hyperkalemia Status: Acute Assessment and Plan: Patient now hypokalemic and a K will be replaced cautiously as patient is on hypothermia protocol (12) Polysubstance abuse: Code(s): F19.10 - Other psychoactive substance abuse, uncomplicated Status: Acute
--- NOTE | 2021-05-05 09:48 | ECHO_ITS ---
Patient Info Name: Joseph Carter Age: 41 years : 1980 Gender: Male Ht: 72 in Wt: 228 lbs BSA: 2.32 m2 HR: 79 bpm BP: 113 / 86 mmHg Heart Rhythm: Sinus Rhythm Technical Quality: Good Exam Date: 05/05/2021 10:24 AM Exam Location: [facility] Pulmonary Patient Status: Inpatient Admit Date: 05/04/2021 Staff Ordering Physician: Gigi Jones MD [place]: Catrina Johnson RDCS Attending Provider: Tuan Shaver MD Exam Type: CA echo doppler color flow Study Info Indications I46.9 - Cardiac arrest, cause unspecified Complete two-dimensional, color flow and Doppler transthoracic echocardiogram is performed. Summary 1. Complete two-dimensional, color flow and Doppler transthoracic echocardiogram is performed. 2. Left ventricular chamber dimension is normal. 3. Left ventricular systolic function is normal, estimated at 60-65%. 4. The left ventricular diastolic function is grade I diastolic dysfunction. 5. There is mild mitral valve regurgitation. 6. There is mild tricuspid valve regurgitation. 7. There is mild pulmonic regurgitation. 8. There is small pericardial effusion. 9. The aortic root size at the sinus of Valsalva is mildly dilated. Left Ventricle Left ventricular chamber dimension is normal. Left ventricular systolic function is normal, estimated at 60-65%. There is mildly increased left ventricular wall thickness. The left ventricular diastolic function is grade I diastolic dysfunction. Right Ventricle Right ventricular chamber dimension is normal. Right ventricular systolic function is normal. Left Atria Left atrial chamber dimension is normal. Right Atria Right atrial chamber dimension is normal. Atrial Septum Intact interatrial septum visualized by color flow imaging. Aortic Valve The aortic valve is trileaflet. There is mild aortic valve sclerosis. There is no aortic valve stenosis. There is trace aortic valve regurgitation. Pulmonic Valve The pulmonic valve is normal. There is no pulmonic valve stenosis. There is mild pulmonic regurgitation. Mitral Valve The mitral valve has normal leaflets. There is no mitral valve stenosis. There is mild mitral valve regurgitation. Tricuspid Valve The tricuspid valve leaflets are normal. There is no significant tricuspid valve stenosis. There is mild tricuspid valve regurgitation. No pulmonary hypertension, estimated pulmonary arterial systolic pressure is 32 mmHg. Pericardium/Pleural The pericardium appears normal. There is small pericardial effusion. Inferior Vena Cava Normal inferior vena cava with >50% collapse upon inspiration consistent with elevated right atrial pressure, 10 mmHg. Aorta The aortic root size at the sinus of Valsalva is mildly dilated. Left Ventricular Outflow Tract Name Value Normal LVOT 2D LVOT Diameter 2.0 cm LVOT Doppler LVOT Peak Gradient 4 mmHg LVOT Mean Gradient 2 mmHg LVOT VTI 20 cm LVOT VTI/AV VTI Ratio 0.8 LVOT Stroke Volume
[2021-05-05 10:00] LABS: Hematocrit 43.3 % (42.0-52.0); Hemoglobin 13.9 g/dL (14.0-18.0); Mean Corpuscular HGB Conc 32.1 g/dl (32-36); Mean Corpuscular Hemoglobin 30.5 pg (26-34); Mean Corpuscular Volume 95.2 fl (80-100); Mean Platelet Volume 8.9 fl (7.4-10.4); Platelet Count Result 243 k/mm3 (150-375); Red Blood Count 4.55 M/mm3 (4.6-6.20); Red Cell Distribution Width 13.7 % (11.5-14.5); White Blood Count 16.4 K/mm3 (4.5-10.0)
[2021-05-05 10:19] LABS: Partial Thromboplastin Time 29.9 SECONDS (22.3-36.8)
--- NOTE | 2021-05-05 10:32 | PCDIET ---
Nutrition Follow-Up Complete: Nutrition Diagnosis: Inadequate oral intake related to oral intubation as evidenced by NPO status. Nutrition Goal: Patient to meet estimated nutritional needs. Goal not met. Patient undergoing hypothermia protocol. Once patient rewarmed and stable, recommend enteral feedings: Two Jt HN at goal rate of 40mL/hr would provide 1760kcal (2087kcal with Propofol at current rate), 73g protein and 616mL free water over 22 hours/day. Last recorded weight is 103.7 kg which is stable. Bowel Motility: No documented BM. Labs Reviewed: Glu (155), K (2.6), Na (147), Cl (121), PO4 (2.2) Meds Noted: Precedex, Pepcid, Fentanyl, Mannitol, Levophed, Zosyn, Phenylephrine, Zosyn, KCl, Vancomycin, Vasopressin, 3% NS at 75mL/hr, Propofol (rate of 12.42mL/hr provides 327kcal per day) Additional Notes: Documented scab on right buttock. No pressure sores. Will continue to monitor with same goal. Nutrition Monitoring and Evaluation: Follow up every 3 days.
[2021-05-05 11:08] LABS: Glucose Point of Care 138 mg/dl (65-105)
[2021-05-05 11:08] LABS: Glucose Point of Care 150 mg/dl (65-105)
[2021-05-05 11:08] LABS: Glucose Point of Care 132 mg/dl (65-105)
--- NOTE | 2021-05-05 13:15 | WPDNEURCNPN ---
Assessment and Plan Assessment and plan (1) Encephalopathy: Code(s): G93.40 - Encephalopathy, unspecified Status: Acute Additional Plan post anoxic encephalopathy I will review the EEG, condition critical Consult date: 05/05/21 Time Seen: 13:00 HPI: Joseph Carter Jr. is a 41 year old male41 years old right-handed male admitted to [facility] through the emergency room for the cardiac arrest in addition to the ongoing history of 1. Drug abuse 2. Brought in by EMS subsequently being found in cardiac arrest 3. Long-term use of meth in fact he was seen in November of 2020 for drug overdose recovered and X conduit from the emergency department and has had multiple treatments at the drug rehabs in the past in addition to the history of COVID vaccine as per the information available EMS were called to the scene patient was down without pulse CPR was started ROS see achieved after 20 minutes he did receive multiple doses of Narcan and epinephrine in the ER his blood pressure was 89/76 subsequent placement of a central line CT scan of the brain revealed diffuse decreased borrego matter white matter differentiation and narrowing of the sulci and ventricles suggesting diffuse cerebral edema secondary to global anoxic brain injury chest x-ray documented left upper lobe infiltration CBC noted leukocytosis, elevated liver function test and urine drug screen was positive for amphetamines benzodiazepine cannabis and he was intubated and sedated neurology consultation has been obtained evaluate the neurological status. In the past patient has the history of cholecystectomy, shoulder surgery, insertion of spinal cord stimulator, smoking 10 cigarettes per day and former alcohol intake, most recent blood workup shows leukocytosis with WBC 16.4 hemoglobin 13.9 and a platelet count of 243 PTT of 14.08 PTT 29.9, blood gases pH 7.3 PO to 104.6 and pCO2 36.4 chemistry with sodium 147 potassium 2.6 chloride 121 BUN 17 creatinine 1.3 glucose 150 UA negative toxicology positive for the amphetamine benzodiazepine cannabinoids and serology only positive hep B antibody, echocardiogram 60 to 65% left ventricular systolic function mild valvular regurgitation and small pericardial effusion, CT scan of the head with global anoxic brain injury with worsening cerebellar and cerebellar edema effacement of the ventricles and developing tonsillar uncal herniation with infarction in the basal ganglia and caudate nuclei bilaterally cervical spine CT scan negative except cervical lordosis Review of Systems Review of Systems: All systems reviewed & are unremarkable except as noted in HPI and below PMFSH Past Medical History Medical History PTSD (post-traumatic stress disorder) Surgical History Surgical History History of cholecystectomy Hx of shoulder surgery S/P insertion of spinal cord stimulator Family History Family History Other Family history unobtainable Social History Social History Social History: Patient smokes 1ppd. Drug history as above. [place] war vet. Was living with his until recently Smoking packs per day: 0.5 Smoking cigarettes per day: 10.0 Smoking status: Unknown if ever smoked Alcohol intake: unknown Substance use: current Substance use type: unknown Spiritual care concerns: No Meds Home Medications and Allergies Home Medications Medication Instructions Recorded Confirmed Type No Home Medications 08/10/20 05/04/21 History Allergies Allergy/AdvReac Type Severity Reaction Status Date / Time tramadol Allergy Intermediate HIVES Verified 08/10/20 16:42 Vital Signs Vital Signs - 24 hr 05/04/21 14:00 05/04/21 14:19 05/04/21 14:21 Temperature 37.2 C Pulse Rate 113 H 113 H 113 H Respiratory Rate 23 H 23
--- NOTE | 2021-05-05 13:27 | PM.IMPN ---
Progress Note: A&P Assessment and Plan (1) Cardiac arrest: Code(s): I46.9 - Cardiac arrest, cause unspecified Status: Acute Assessment and Plan: Patient found down and CPR started. ROSC achieved after 20 minutes but unclear on how long he was down prior to EMS arrival. Hypothermia protocol started. Suspect related to drug overdose. EKG not consistent with ACS. Troponin elevated but felt related to the cardiac arrest. Could also have had HoTN from phosphodiasterase inhibitor with drug use. Cooling protocol in process. Monitor neuro function. Continue supportive care. Discussed with cargo worker. Spoke with family and they were updated. (2) Shock: Code(s): R57.9 - Shock, unspecified Status: Acute Assessment and Plan: Soledad had HoTN on admission related to the cardiac arrest. Was on Levophed but able to be weaned off now. Continue IV fluids. Continue supportive care (3) Acute respiratory failure: Code(s): J96.00 - Acute respiratory failure, unspecified whether with hypoxia or hypercapnia Status: Acute Assessment and Plan: Acute respiratory failure related to the cardiac arrest and complicated by the PNA. Stable on mechanical ventilation. Continue supportive care. (4) Anoxic brain injury: Code(s): G93.1 - Anoxic brain damage, not elsewhere classified Status: Acute Assessment and Plan: CT of the brain showing diffuse decreased borrego-white matter differentiation and narrowing of the sulci and ventricles suggesting diffuse cerebral edema likely related to global anoxic brain injury. Related to prolonged down time. Neurology consulted. Hypothermia protocol continued. EEG ordered. 3% saline was given for the edema. Sedation being weaned off (5) Polysubstance abuse: Code(s): F19.10 - Other psychoactive substance abuse, uncomplicated Status: Acute Assessment and Plan: Patient has extensive history of drug use. UDS positive for Amphetamines, Benzos and Cannibis. Currently sedated. Monitor for withdrawal symptoms. (6) KATJA (acute kidney injury): Code(s): N17.9 - Acute kidney failure, unspecified Status: Acute Assessment and Plan: Creatinine 1.9 on admission. Most likely related to hypoperfusion. He has been started on IV fluids. Blood pressure better controlled. Cr down to 1.3. Continue to follow. (7) Aspiration pneumonia: Code(s): J69.0 - Pneumonitis due to inhalation of food and vomit Status: Acute Assessment and Plan: Chest x-ray reviewed personally. Patient had a new left upper lobe airspace disease but improved today but with worsening LLL airspace disease. COVID negative. Blood cultures NGTD. Continue IV antibiotics. (8) Priapism: Code(s): N48.30 - Priapism, unspecified Status: Acute Assessment and Plan: Patient has a history priapism in the past. [place] related to ephedrine during resuscitation. Priapism improved initially but overnight, priapism recurred lasting >4 hours and he required corporal aspiration overnight. Continue to monitor. (9) Cerebral edema: Code(s): G93.6 - Cerebral edema Status: Acute Assessment and Plan: CT of the brain showing likely diffuse cerebral edema. Related to prolonged down time in asystole. As above. (10) Encephalopathy: Code(s): G93.40 - Encephalopathy, unspecified Status: Acute Assessment and Plan: Related to above. (11) Hyperkalemia: Code(s): E87.5 - Hyperkalemia Status: Acute Assessment and Plan: Potassium 5.6 on admission but now has normalized. Related to above. Continue to monitor closely (12) Transaminitis: Code(s): R74.01 - Elevation of levels of liver transaminase levels Status: Acute Assessment and Plan: AST 175 and ALT 123 felt related to shock liver. Should improve with improved perfusion.
[2021-05-05] MEDS: PROPOFOL IV EMULSION 100 ML 24.84 MG IV CONT ×3 (13:58→21:13)
[2021-05-05 14:00] LABS: Alanine Aminotransferase 113 U/L (4-50); Albumin Level 3.3 g/dL (3.5-5.1); Alkaline Phosphatase 93 U/L (38-126); Anion Gap 8 mmol/L (8-16); Aspartate Amino Transferase 92 U/L (17-59); Bilirubin,Total 0.3 mg/dL (0.2-1.3); Blood Urea Nitrogen 16 mg/dL (9-20); Calcium 8.8 mg/dL (8.4-10.2); Carbon Dioxide 17 mmol/L (22-30); Chloride 123 mmol/L (98-107); Estimated CRCL calculation 99 ml/min; Estimated Glomerular Filt Rate > 60; Glucose 225 mg/dL (75-110); Sodium 148 mmol/L (137-145)
[2021-05-05] MEDS: POTASSIUM CHLORIDE 20 MEQ PACKET (FOR LIQUID) 40 MEQ FEED TUBE ×2 (14:55→18:02)
[2021-05-05 16:42] LABS: Lactic Acid Reflex 1.1 mmol/L (0.7-2.1)
[2021-05-05 16:46] LABS: Anion Gap 9 mmol/L (8-16); Blood Urea Nitrogen 13 mg/dL (9-20); Calcium 8.9 mg/dL (8.4-10.2); Carbon Dioxide 17 mmol/L (22-30); Chloride 128 mmol/L (98-107); Estimated CRCL calculation 99 ml/min; Estimated Glomerular Filt Rate > 60; Glucose 134 mg/dL (75-110); Potassium < 2.0 mmol/L (3.4-5.0); Sodium 154 mmol/L (137-145)
[2021-05-05 17:16] LABS: Glucose Point of Care 155 mg/dl (65-105)
[2021-05-05 17:16] LABS: Glucose Point of Care 104 mg/dl (65-105)
[2021-05-05 17:16] LABS: Glucose Point of Care 182 mg/dl (65-105)
[2021-05-05 17:16] LABS: Glucose Point of Care 451 mg/dl (65-105)
[2021-05-05 17:16] LABS: Glucose Point of Care 223 mg/dl (65-105)
[2021-05-05 17:16] LABS: Glucose Point of Care 128 mg/dl (65-105)
[2021-05-05] MEDS: PHARMACIST COMMUNICATION ORDER 1 EACH XX (18:13)
[2021-05-05 19:26] LABS: Glucose Point of Care 106 mg/dl (65-105)
[2021-05-05] MEDS: KCL 20 MEQ/SW 100 ML 100 ML 100 MEQ IVPB (20:14)
[2021-05-05 20:24] LABS: Glucose Point of Care 117 mg/dl (65-105)
[2021-05-05 21:28] LABS: Glucose Point of Care 127 mg/dl (65-105)
[2021-05-05 21:50] LABS: Lactic Acid Reflex 0.9 mmol/L (0.7-2.1)
[2021-05-05 21:52] LABS: Anion Gap 5 mmol/L (8-16); Blood Urea Nitrogen 14 mg/dL (9-20); Carbon Dioxide 20 mmol/L (22-30); Chloride 128 mmol/L (98-107); Estimated CRCL calculation 108 ml/min; Estimated Glomerular Filt Rate > 60; Glucose 122 mg/dL (75-110); Potassium 2.9 mmol/L (3.4-5.0); Sodium 153 mmol/L (137-145)
[2021-05-05 22:51] LABS: Glucose Point of Care 142 mg/dl (65-105)
[2021-05-05] MEDS: NOREPINEPHRINE 8 MG/D5W 250 ML 8 MG/250 ML BAG 9.38 MG IV CONT (23:58)
[2021-05-06] VITALS (35 sets, daily range): BP systolic 68–190; BP diastolic 44–129; PULSE 84–141; RESP 14–20; TEMP 35.6–37.2; O2SAT 94–100
[2021-05-06 00:44] LABS: Glucose Point of Care 131 mg/dl (65-105)
[2021-05-06] MEDS: PROPOFOL IV EMULSION 100 ML 24.84 MG IV CONT (01:19)
[2021-05-06 01:23] LABS: Glucose Point of Care 124 mg/dl (65-105)
[2021-05-06 03:50] LABS: Glucose Point of Care 71 mg/dl (65-105)
[2021-05-06 04:16] LABS: Glucose Point of Care 69 mg/dl (65-105)
[2021-05-06] MEDS: DEXTROSE 50% 25 GM/50 ML SYRINGE IV PUSH (04:20)
[2021-05-06 04:23] LABS: Base Excess ABG -3.3 mEq/l (+/-2.0); Carboxyhemoglobin 0.3 % THb (0-2.0); Device VENTILATOR; Fractional Inspired Oxygen 30 %; HCO3 ABG 20.6 mEq/l (22.0-26.0); Methemoglobin ABG 0.2 %THb (0-1.5); Modified Allen's Test Unable to perform; Oxygen Content ABG 18.8 %vol (16.0-22.0); Oxygen Saturation ABG 96.9 % (95.0-100.0); PO2 FiO2 Ratio Arterial Blood 2.97 %; Reduced Hemoglobin 3.5 %THb (0-5.0); Site Drawn RIGHT RADIAL; Total Hemoglobin 13.9 g/dL (12.0-18.0); pH ABG 7.401 (7.350-7.450)
[2021-05-06 04:24] LABS: Arterial Blood Gas PEEP 8 cmH2O; Arterial Blood Gas Tidal Volume 450 ml; Arterial Blood Gas Vent Mode CMV; Arterial Blood Gas Ventilator rate 20 /MIN
[2021-05-06 04:37] LABS: Glucose Point of Care 109 mg/dl (65-105)
[2021-05-06] MEDS: CENTRAL LINE FLUSH 10 ML IV PUSH ×4 (06:02→21:20)
[2021-05-06 06:07] LABS: Glucose Point of Care 92 mg/dl (65-105)
[2021-05-06 06:48] LABS: Glucose Point of Care 89 mg/dl (65-105)
[2021-05-06 06:55] LABS: Hematocrit 39.9 % (42.0-52.0); Mean Corpuscular HGB Conc 32.6 g/dl (32-36); Mean Corpuscular Hemoglobin 30.4 pg (26-34); Mean Corpuscular Volume 93.4 fl (80-100); Mean Platelet Volume 9.3 fl (7.4-10.4); Platelet Count Result 256 k/mm3 (150-375); Red Blood Count 4.27 M/mm3 (4.6-6.20); White Blood Count 14.1 K/mm3 (4.5-10.0)
[2021-05-06 07:05] LABS: Lactic Acid Reflex 0.9 mmol/L (0.7-2.1); Prothrombin Time 14.2 Seconds (11.1-14.7)
[2021-05-06 07:07] LABS: Alanine Aminotransferase 85 U/L (4-50); Albumin Level 3.2 g/dL (3.5-5.1); Alkaline Phosphatase 83 U/L (38-126); Anion Gap 5 mmol/L (8-16); Aspartate Amino Transferase 52 U/L (17-59); Bilirubin,Total 0.2 mg/dL (0.2-1.3); Blood Urea Nitrogen 11 mg/dL (9-20); Calcium 8.8 mg/dL (8.4-10.2); Carbon Dioxide 21 mmol/L (22-30); Chloride 130 mmol/L (98-107); Estimated CRCL calculation 69 ml/min; Estimated Glomerular Filt Rate 56; Glucose 109 mg/dL (75-110); Magnesium 2.1 mg/dL (1.6-2.3); Potassium 4.7 mmol/L (3.4-5.0); Sodium 156 mmol/L (137-145)
[2021-05-06 07:22] LABS: Glucose Point of Care 95 mg/dl (65-105)
--- NOTE | 2021-05-06 08:04 | WPDINTPN ---
Progress Note: A&P Assessment and Plan (1) Anoxic brain injury: Code(s): G93.1 - Anoxic brain damage, not elsewhere classified Status: Acute Assessment and Plan: Patient clearly had severe anoxic brain injury on presentation as evidenced from his head CT on presentation along with cerebral edema. Patient was started on TTM protocol and reached his goal temperature at 6:00 p.m. He was also started on 3% saline to drive his sodium up which was discontinued once the sodium reached above 150 Patient was sedated with propofol for TTM protocol Yesterday patient was breathing over the ventilator but not today Repeat head CT was done 05/05 IMPRESSION: Global anoxic brain injury with worsening cerebral and cerebellar edema, effacement of ventricles and developing tonsillar uncal herniation. Infarcted basal ganglia and caudate bilaterally. Patient was seen by Neurology At this time patient appears to have lost all neurological activity. He was on propofol at 15cc overnight which I have discontinued around 0745 this morning I will re-evaluate patient after some time and if exam stays consistent will plan to get EEG and brain perfusion scan. Will also discuss with neurology If despite holding sedation, neurological exam stays could consistent, we will proceed with clinical examination to evaluate by neurological criteria (2) Cerebral edema: Code(s): G93.6 - Cerebral edema Status: Acute Assessment and Plan: Patient was on 3% saline which was discontinued once sodium reached above 150 Patient did receive 1 dose of mannitol although continuous mannitol was not used due to lack of availability of timely serum osmolality testing as that test is sent out in this hospital's (3) Cardiac arrest: Code(s): I46.9 - Cardiac arrest, cause unspecified Status: Acute Assessment and Plan: Likely secondary to drug overdose Continue Telemetry monitoring Mild elevation in troponin likely secondary to cardiac arrest and not a primary ACS etiology. He is on aspirin Reviewed echocardiogram Monitor and replace electrolytes Respiratory and hemodynamic support (4) Acute respiratory failure: Code(s): J96.00 - Acute respiratory failure, unspecified whether with hypoxia or hypercapnia Status: Acute Assessment and Plan: Acute Respiratory failure secondary to cardiac arrest and anoxic brain injury Continue full mechanical ventilation support to prevent hypoxemia/hypercarbia and end organ damage. ABG and PCXR reviewed He is down to 30% FiO2 Advance ET tube by 2 cm Zosyn for aspiration pneumonia (5) Suspected COVID-19 virus infection: Code(s): Z20.822 - Contact with and (suspected) exposure to COVID-19 Status: Acute Assessment and Plan: COVID-19 was suspected. SARS-CoV-2 PCR was negative (6) Aspiration pneumonia: Code(s): J69.0 - Pneumonitis due to inhalation of food and vomit Status: Acute Assessment and Plan: Sputum and blood culture Zosyn (7) Priapism: Code(s): N48.30 - Priapism, unspecified Status: Acute Assessment and Plan: Corporal aspiration and irrigation was performed by Urology on 05/04 (8) Shock: Code(s): R57.9 - Shock, unspecified Status: Acute Assessment and Plan: Sepsis versus hypovolemic versus sedation Patient was given another IV fluid bolus in the ER On low-dose Levophed (9) Encephalopathy: Code(s): G93.40 - Encephalopathy, unspecified Status: Acute Assessment and Plan: Secondary to drugs and anoxic brain injury (10) KATJA (acute kidney injury): Code(s): N17.9 - Acute kidney failure, unspecified Status: Acute Assessment and Plan: Likely secondary to shock and hypovolemia Monitor intake output and electrolytes Improved (11) Polysubstance abuse: Code(s): F19.10 - Other psychoactive substance abuse, uncomplicated Status: Acute Assessme
[2021-05-06 08:28] LABS: Glucose Point of Care 77 mg/dl (65-105)
[2021-05-06] MEDS: ASPIRIN 325 MG TABLET FEED TUBE (08:29)
[2021-05-06] MEDS: ENOXAPARIN 40 MG/0.4 ML SYRINGE SUB-Q (08:30)
[2021-05-06] MEDS: FAMOTIDINE 20 MG/2 ML VIAL IV PUSH ×2 (08:30→21:20)
[2021-05-06 09:19] LABS: Vancomycin Trough 14.8 ug/mL (10.0-20.0)
[2021-05-06 10:53] LABS: Glucose Point of Care 102 mg/dl (65-105)
[2021-05-06 11:28] LABS: Alveolar/Arterial O2 Gradient 19.7 mmHg; Base Excess ABG -3.9 mEq/l (+/-2.0); Device VENTILATOR; Fractional Inspired Oxygen 30 %; HCO3 ABG 18.3 mEq/l (22.0-26.0); Modified Allen's Test Pass; Oxygen Saturation ABG 99.2 % (95.0-100.0); Oxyhemoglobin 97.7 % THb (90.0-100.0); PCO2 ABG 26.3 mmHg (35.0-45.0); PO2 ABG 163.3 mmHg (80.0-100.0); PO2 FiO2 Ratio Arterial Blood 5.44 %; Site Drawn LEFT RADIAL; Total Hemoglobin 13.6 g/dL (12.0-18.0); pH ABG 7.461 (7.350-7.450)
[2021-05-06 11:29] LABS: Arterial Blood Gas PEEP 8 cmH2O; Arterial Blood Gas Tidal Volume 450 ml; Arterial Blood Gas Vent Mode CMV; Arterial Blood Gas Ventilator rate 20 /MIN
--- NOTE | 2021-05-06 11:35 | P.BRDTH_ITS ---
Brain Determination Determination of Brain Determination of Brain : Patient has been off of propofol since 745 this morning. Determination of brain was initiated. EEG was done and result is pending. I spoke to Radiology and we do not have tracer for cerebral perfusion scan. First clinical examination was done. Initial ABG showed low CO2. Ventilator was adjusted and rate was decreased to 14. 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 depressant drug effect absent * No evidence of residual paralytics * Abscence of severe acid-base,electrolyte,endocrine abnormality * Normothermia or mild hypothermia (core temperature> 36 C) * Systolic blood pressure > or = to 100mmHg Examination: * Pupils nonreactive to bright light * Corneal reflex absent * Oculocephalic reflex absent * Oculovestibular reflex absent * No facial movement to noxious stimuli at supraorbital nerve,temporomandibular joint * Gag reflex absent * Cough reflex absent to tracheal suctioning * Absence of motor response to noxious stimuli in all 4 limbs (spinally mediated reflexes are permissible) Apnea testing: * Patient is hemodynamically stable * Ventilator adjusted to provide normocarbia (PaC02 34-45mmHg) * Patient Preoxygenated with 100% Fi02 for>10 minutes to Pa02>200mmHg * Patient well-oxygenated with a PEEP of 5cm of water * Provided oxygen via a suction catheter to the level of the sarah at 6L/min or attach T-piece with CPAP at [id number] * Disconnected ventilator * Spontaneous respirations absent * Arterial blood gas drawn at 8-10 minutes,patient reconnected to ventilator * PC02> or = to 60mmHg, or 20mmHg rise from normal baseline value OR * Apnea test aborted Above mentioned criteria has been met. EEG results are pending. A 2nd physician exam will be performed by Neurology. If both EEG results and 2nd exam a consistent the patient will meet criteria for for brain
--- NOTE | 2021-05-06 11:35 | WPDBRDTH ---
Brain Determination Determination of Brain Determination of Brain : Patient has been off of propofol since 745 this morning. Determination of brain was initiated. EEG was done and result is pending. I spoke to Radiology and we do not have tracer for cerebral perfusion scan. First clinical examination was done. Initial ABG showed low CO2. Ventilator was adjusted and rate was decreased to 14. 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 depressant drug effect absent No evidence of residual paralytics Abscence of severe acid-base,electrolyte,endocrine abnormality Normothermia or mild hypothermia (core temperature> 36 C) Systolic blood pressure > or = to 100mmHg Examination: Pupils nonreactive to bright light Corneal reflex absent Oculocephalic reflex absent Oculovestibular reflex absent No facial movement to noxious stimuli at supraorbital nerve,temporomandibular joint Gag reflex absent Cough reflex absent to tracheal suctioning Absence of motor response to noxious stimuli in all 4 limbs (spinally mediated reflexes are permissible) Apnea testing: Patient is hemodynamically stable Ventilator adjusted to provide normocarbia (PaC02 34-45mmHg) Patient Preoxygenated with 100% Fi02 for>10 minutes to Pa02>200mmHg Patient well-oxygenated with a PEEP of 5cm of water Provided oxygen via a suction catheter to the level of the sarah at 6L/min or attach T-piece with CPAP at [id number] Disconnected ventilator Spontaneous respirations absent Arterial blood gas drawn at 8-10 minutes,patient reconnected to ventilator PC02> or = to 60mmHg, or 20mmHg rise from normal baseline value OR Apnea test aborted Above mentioned criteria has been met. EEG results are pending. A 2nd physician exam will be performed by Neurology. If both EEG results and 2nd exam a consistent the patient will meet criteria for for brain
[2021-05-06 11:51] LABS: Alveolar/Arterial O2 Gradient 91.4 mmHg; Base Excess ABG -3.9 mEq/l (+/-2.0); Fractional Inspired Oxygen 30 %; HCO3 ABG 20.9 mEq/l (22.0-26.0); Oxygen Content ABG 18.6 %vol (16.0-22.0); Oxygen Saturation ABG 95.4 % (95.0-100.0); PO2 FiO2 Ratio Arterial Blood 2.63 %; Total Hemoglobin 13.9 g/dL (12.0-18.0); pH ABG 7.369 (7.350-7.450)
[2021-05-06 11:52] LABS: Anion Gap 5 mmol/L (8-16); Blood Urea Nitrogen 11 mg/dL (9-20); Calcium 9.1 mg/dL (8.4-10.2); Carbon Dioxide 21 mmol/L (22-30); Chloride 132 mmol/L (98-107); Estimated CRCL calculation 65 ml/min; Estimated Glomerular Filt Rate 52; Glucose 150 mg/dL (75-110); Potassium 4.5 mmol/L (3.4-5.0); Sodium 158 mmol/L (137-145)
[2021-05-06 11:53] LABS: Device VENTILATOR; Modified Allen's Test Pass; Site Drawn LEFT RADIAL
[2021-05-06 11:54] LABS: Arterial Blood Gas PEEP 5 cmH2O; Arterial Blood Gas Tidal Volume 450 ml; Arterial Blood Gas Vent Mode CMV; Arterial Blood Gas Ventilator rate 14 /MIN
[2021-05-06] MEDS: DESMOPRESSIN ACETATE 4 MCG/ML AMP 2 MCG IV PUSH (12:23)
[2021-05-06 12:30] LABS: Alveolar/Arterial O2 Gradient 78.8 mmHg; Base Excess ABG -6.6 mEq/l (+/-2.0); Fractional Inspired Oxygen 44 %; Oxygen Content ABG 19.3 %vol (16.0-22.0); Oxyhemoglobin 97.7 % THb (90.0-100.0); PCO2 ABG 50.1 mmHg (35.0-45.0); PO2 ABG 177.8 mmHg (80.0-100.0); PO2 FiO2 Ratio Arterial Blood 4.04 %; Total Hemoglobin 13.8 g/dL (12.0-18.0)
[2021-05-06 12:32] LABS: Device NASAL CANNULA; Modified Allen's Test Pass; Site Drawn LEFT RADIAL; pH ABG 7.241 (7.350-7.450)
[2021-05-06 12:34] LABS: Alveolar/Arterial O2 Gradient 39.6 mmHg; Fractional Inspired Oxygen 44 %; HCO3 ABG 20.6 mEq/l (22.0-26.0); Oxygen Content ABG 19.4 %vol (16.0-22.0); Oxygen Saturation ABG 99.2 % (95.0-100.0); Oxyhemoglobin 97.9 % THb (90.0-100.0); PCO2 ABG 55.3 mmHg (35.0-45.0); PO2 ABG 211.1 mmHg (80.0-100.0); Total Hemoglobin 13.8 g/dL (12.0-18.0)
[2021-05-06 12:36] LABS: Device NASAL CANNULA; Modified Allen's Test Pass; Site Drawn RIGHT RADIAL
--- NOTE | 2021-05-06 12:58 | P.PNCROSS_ITS ---
Event Note Event Note Event Note: Patient has been off of propofol since 745 this morning. Determination of brain was initiated. EEG was done and result is pending. I spoke to Radiology and we do not have tracer for cerebral perfusion scan. First clinical examination was done. Initial ABG showed low CO2. Ventilator was adjusted and rate was decreased to 14. Repeat ABG done and CO2 was adequate. Patient also appears to have developed DI and desmopressin was given. I will start patient on D5 water On clinical exam patient had no corneal, pupillary. ocucephalic and oculovestibular reflex. Patient has no cough reflex on suction. No response to pain. No gag reflex When apnea test was done the CO2 did rise but was not enough to confirm diagnosis of positive apnea test. 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 depressant drug effect absent * No evidence of residual paralytics * Absence of severe acid-base,electrolyte,endocrine abnormality * Normothermia or mild hypothermia (core temperature> 36 C) * Systolic blood pressure > or = to 100mmHg * Examination: * Pupils nonreactive to bright light * Corneal reflex absent * Oculocephalic reflex absent * Oculovestibular reflex absent * No facial movement to noxious stimuli at supraorbital nerve,temporomandibular joint * Gag reflex absent * Cough reflex absent to tracheal suctioning * Absence of motor response to noxious stimuli in all 4 limbs (spinally mediated reflexes are permissible) * Apnea testing was performed the following protocol * Patient is hemodynamically stable * Ventilator adjusted to provide normocarbia (PaC02 34-45mmHg) * Patient Preoxygenated with 100% Fi02 for>10 minutes to Pa02>200mmHg * Patient well-oxygenated with a PEEP of 5cm of water * Provided oxygen via a suction catheter to the level of the sarah at 6L/min or attach T-piece with CPAP at [id number] * Disconnected ventilator * Spontaneous respirations absent * Arterial blood gas drawn at 8-10 minutes,patient reconnected to ventilator I met with patient's and mother and updated them with patient's current status, his neuro exam and results of brain exam. I explained them the although the test was not conclusive for brain , he still has severe and catastrophic brain injury. They want to continue supportive care this point and want patient to stay full code. I have spoken to Dr. Chavira with neurology who will review EEG and also examined patient and talk to family today. Additional Critical Care Time for today- 110 minutes Due to a high probability of clinically significant, life threatening deterioration, the patient required my highest level of preparedness to intervene emergently and I personally spent this critical care time directly and personally managing the patient. This critical care time included obtaining a history; examining the patient; pulse oximetry; ordering and review of studies; arranging urgent treatment with development of a management plan; evaluation of patient's response to treatment; frequent reassessment; and discussions with other providers. It was exclusive of separately billable procedures and treating other patients and teaching time. Please see Assessment and Plan section and the rest of the note for further information on patient assessment and treatment
[2021-05-06] MEDS: DEXTROSE 5% IN WATER 500 ML IV CONT ×2 (13:10→17:55)
[2021-05-06] MEDS: DEXTROSE 5% 1,000 ML 1,000 ML 100 ML IV CONT (14:15)
--- NOTE | 2021-05-06 15:43 | PM.IMPN ---
Progress Note: A&P Assessment and Plan (1) Cardiac arrest: Code(s): I46.9 - Cardiac arrest, cause unspecified Status: Acute Assessment and Plan: Interval history: Patient found down and CPR started. sustained significant brain injury. Hypothermia protocol started. Suspect related to drug overdose. (2) Shock: Code(s): R57.9 - Shock, unspecified Status: Acute Assessment and Plan: Patietn admitted with cardiac arrest. Continue supportive care (3) Acute respiratory failure: Code(s): J96.00 - Acute respiratory failure, unspecified whether with hypoxia or hypercapnia Status: Acute Assessment and Plan: Acute respiratory failure related to the cardiac arrest and complicated by the PNA. Stable on mechanical ventilation. Continue supportive care. (4) Anoxic brain injury: Code(s): G93.1 - Anoxic brain damage, not elsewhere classified Status: Acute Assessment and Plan: CT of the brain showing diffuse decreased borrego-white matter differentiation and narrowing of the sulci and ventricles suggesting diffuse cerebral edema likely related to global anoxic brain injury. Neurology consulted. Hypothermia protocol continued. EEG ordered. 3% saline was given for the edema. (5) Polysubstance abuse: Code(s): F19.10 - Other psychoactive substance abuse, uncomplicated Status: Acute Assessment and Plan: Patient has extensive history of drug use. UDS positive for Amphetamines, Benzos and Cannibis. (6) KATJA (acute kidney injury): Code(s): N17.9 - Acute kidney failure, unspecified Status: Acute Assessment and Plan: Creatinine 1.5 (7) Aspiration pneumonia: Code(s): J69.0 - Pneumonitis due to inhalation of food and vomit Status: Acute Assessment and Plan: Chest x-ray reviewed personally. Patient had a new left upper lobe airspace disease but improved today but with worsening LLL airspace disease. COVID negative. Continue IV antibiotics. (8) Priapism: Code(s): N48.30 - Priapism, unspecified Status: Acute Assessment and Plan: Patient has a history priapism in the past. (9) Cerebral edema: Code(s): G93.6 - Cerebral edema Status: Acute Assessment and Plan: CT of the brain showing likely diffuse cerebral edema. (10) Encephalopathy: Code(s): G93.40 - Encephalopathy, unspecified Status: Acute Assessment and Plan: Related to above. (11) Hyperkalemia: Code(s): E87.5 - Hyperkalemia Status: Resolved Assessment and Plan: Potassium 5.6 on admission but now has normalized. (12) Transaminitis: Code(s): R74.01 - Elevation of levels of liver transaminase levels Status: Acute Assessment and Plan: AST 175 and ALT 123 felt related to shock liver. (13) DVT prophylaxis: Code(s): Z29.9 - Encounter for prophylactic measures, unspecified Status: Acute Assessment and Plan: Lovenox (14) Suspected COVID-19 virus infection: Code(s): Z20.822 - Contact with and (suspected) exposure to COVID-19 Status: Acute Assessment and Plan: COVID swab negative. Subjective Date/time seen: 05/06/21 15:43 Interval history: 41yo male with known hx of drug abuse brought in by EMS after being found down in cardiac arrest. Unfortunately pt is intubated and had EEG to see brain activity significant brain injury after cardiac arrest Review of Systems Review of Systems: All systems reviewed & are unremarkable except as noted in HPI and below Exam Narrative: Exam Narrative: Vital Signs Temp Pulse Resp BP Pulse Ox 05/06/21 14:07 106 H 94 05/06/21 14:00 106 H
[2021-05-06 16:23] LABS: Anion Gap 5 mmol/L (8-16); Blood Urea Nitrogen 11 mg/dL (9-20); Calcium 8.9 mg/dL (8.4-10.2); Carbon Dioxide 25 mmol/L (22-30); Chloride 128 mmol/L (98-107); Estimated CRCL calculation 65 ml/min; Estimated Glomerular Filt Rate 52; Glucose 119 mg/dL (75-110); Magnesium 2.2 mg/dL (1.6-2.3); Potassium 4.3 mmol/L (3.4-5.0); Sodium 158 mmol/L (137-145)
[2021-05-06 18:07] LABS: Glucose Point of Care 124 mg/dl (65-105)
[2021-05-06 20:26] LABS: Glucose Point of Care 115 mg/dl (65-105)
[2021-05-06 20:38] LABS: Anion Gap 6 mmol/L (8-16); Blood Urea Nitrogen 11 mg/dL (9-20); Calcium 8.8 mg/dL (8.4-10.2); Carbon Dioxide 25 mmol/L (22-30); Chloride 124 mmol/L (98-107); Estimated CRCL calculation 65 ml/min; Estimated Glomerular Filt Rate 52; Glucose 107 mg/dL (75-110); Potassium 4.3 mmol/L (3.4-5.0); Sodium 155 mmol/L (137-145)
[2021-05-06 21:15] LABS: Hepatitis B Core Ab Total Nonreactive (Nonreactive)
[2021-05-06] MEDS: PHENYLEPHRINE HCL INJ 10 MG, SODIUM CHLORIDE 0.9% INJ 19 ML I-CAVERN (21:21)
[2021-05-06 23:44] LABS: Glucose Point of Care 133 mg/dl (65-105)
[2021-05-07] VITALS (39 sets, daily range): BP systolic 90–187; BP diastolic 65–126; PULSE 99–140; RESP 11–21; TEMP 33.9–36.9; O2SAT 93–97
[2021-05-07] MEDS: DESMOPRESSIN ACETATE 4 MCG/ML AMP 2 MCG IV PUSH ×2 (00:18→11:52)
[2021-05-07 00:30] LABS: Anion Gap 5 mmol/L (8-16); Blood Urea Nitrogen 11 mg/dL (9-20); Calcium 8.8 mg/dL (8.4-10.2); Carbon Dioxide 24 mmol/L (22-30); Chloride 122 mmol/L (98-107); Estimated CRCL calculation 74 ml/min; Estimated Glomerular Filt Rate > 60; Glucose 116 mg/dL (75-110); Potassium 3.9 mmol/L (3.4-5.0); Sodium 151 mmol/L (137-145)
--- NOTE | 2021-05-07 01:00 | PC.NURSE ---
Multiple attempts made to get temperature reading. Encountered technical difficulties with temp probe thompson. Unable to get accurate temp per protocol when chon torres initially applied.
[2021-05-07] MEDS: DEXTROSE 5% 1,000 ML 1,000 ML 100 ML IV CONT ×3 (01:22→22:46)
[2021-05-07] MEDS: hydrALAZINE HCL 20 MG/ML VIAL IV PUSH (03:42)
[2021-05-07 03:55] LABS: Glucose Point of Care 105 mg/dl (65-105)
[2021-05-07 04:19] LABS: Alveolar/Arterial O2 Gradient 122.2 mmHg; Base Excess ABG -1.2 mEq/l (+/-2.0); Carboxyhemoglobin 0.3 % THb (0-2.0); Device VENTILATOR; Fractional Inspired Oxygen 35 %; HCO3 ABG 24.4 mEq/l (22.0-26.0); Methemoglobin ABG 0.2 %THb (0-1.5); Modified Allen's Test Pass; Oxygen Content ABG 19.1 %vol (16.0-22.0); Oxygen Saturation ABG 94.8 % (95.0-100.0); Oxyhemoglobin 94.4 % THb (90.0-100.0); PO2 ABG 76.2 mmHg (80.0-100.0); PO2 FiO2 Ratio Arterial Blood 2.18 %; Reduced Hemoglobin 5.1 %THb (0-5.0); Site Drawn LEFT RADIAL; Total Hemoglobin 14.4 g/dL (12.0-18.0); pH ABG 7.362 (7.350-7.450)
[2021-05-07 04:20] LABS: Arterial Blood Gas PEEP 5 cmH2O; Arterial Blood Gas Tidal Volume 450 ml; Arterial Blood Gas Vent Mode CMV; Arterial Blood Gas Ventilator rate 14 /MIN
[2021-05-07 04:49] LABS: Hematocrit 43.6 % (42.0-52.0); Hemoglobin 13.5 g/dL (14.0-18.0); Mean Corpuscular Hemoglobin 30.3 pg (26-34); Mean Corpuscular Volume 97.8 fl (80-100); Mean Platelet Volume 9.5 fl (7.4-10.4); Platelet Count Result 236 k/mm3 (150-375); Red Blood Count 4.46 M/mm3 (4.6-6.20); Red Cell Distribution Width 14.6 % (11.5-14.5); White Blood Count 12.1 K/mm3 (4.5-10.0)
[2021-05-07 05:01] LABS: Alanine Aminotransferase 78 U/L (4-50); Albumin Level 3.5 g/dL (3.5-5.1); Alkaline Phosphatase 83 U/L (38-126); Anion Gap 7 mmol/L (8-16); Aspartate Amino Transferase 35 U/L (17-59); Bilirubin,Total 0.4 mg/dL (0.2-1.3); Blood Urea Nitrogen 10 mg/dL (9-20); Calcium 8.9 mg/dL (8.4-10.2); Carbon Dioxide 25 mmol/L (22-30); Chloride 119 mmol/L (98-107); Estimated CRCL calculation 74 ml/min; Estimated Glomerular Filt Rate > 60; Glucose 108 mg/dL (75-110); Magnesium 1.9 mg/dL (1.6-2.3); Sodium 151 mmol/L (137-145)
[2021-05-07] MEDS: CENTRAL LINE FLUSH 10 ML IV PUSH ×4 (05:25→20:12)
--- NOTE | 2021-05-07 08:29 | WPDINTPN ---
Progress Note: A&P Assessment and Plan (1) Anoxic brain injury: Code(s): G93.1 - Anoxic brain damage, not elsewhere classified Status: Acute Assessment and Plan: Patient clearly had severe anoxic brain injury on presentation as evidenced from his head CT on presentation along with cerebral edema. Patient was started on TTM protocol and reached his goal temperature at 6:00 p.m. He was also started on 3% saline to drive his sodium up which was discontinued once the sodium reached above 150 Patient was sedated with propofol for TTM protocol 05/05 patient was breathing over the ventilator Repeat head CT was done 05/05 IMPRESSION: Global anoxic brain injury with worsening cerebral and cerebellar edema, effacement of ventricles and developing tonsillar uncal herniation. Infarcted basal ganglia and caudate bilaterally. 05/06 patient was evaluated for brain . His clinical exam was consistent with brain examination. Apnea test was done. His CO2 increased but did not meet the criteria for confirmation. EEG also showed some activity and was not fully flat as per discussion with Neurology. Full report is still pending Patient was also seen by Neurology I will plan to repeat EEG tomorrow and depending on the results re-evaluate for brain if patient continues to meet all other criteria and neuro examination remains consistent Patient has a catastrophic neurological injury secondary to anoxic brain injury from his cardiac arrest. Continue supportive care this time. Not on any sedation (2) Cerebral edema: Code(s): G93.6 - Cerebral edema Status: Acute Assessment and Plan: Patient was on 3% saline which was discontinued once sodium reached above 150 Patient did receive 1 dose of mannitol although continuous mannitol was not used due to lack of availability of timely serum osmolality testing as that test is sent out in this hospital's (3) Cardiac arrest: Code(s): I46.9 - Cardiac arrest, cause unspecified Status: Acute Assessment and Plan: Likely secondary to drug overdose Continue Telemetry monitoring Mild elevation in troponin likely secondary to cardiac arrest and not a primary ACS etiology. He is on aspirin Reviewed echocardiogram Monitor and replace electrolytes Respiratory and hemodynamic support (4) Acute respiratory failure: Code(s): J96.00 - Acute respiratory failure, unspecified whether with hypoxia or hypercapnia Status: Acute Assessment and Plan: Acute Respiratory failure secondary to cardiac arrest and anoxic brain injury Continue full mechanical ventilation support to prevent hypoxemia/hypercarbia and end organ damage. ABG and PCXR reviewed He is down to 30% FiO2 DC vancomycin but continue Zosyn for aspiration pneumonia (5) Suspected COVID-19 virus infection: Code(s): Z20.822 - Contact with and (suspected) exposure to COVID-19 Status: Acute Assessment and Plan: COVID-19 was suspected. SARS-CoV-2 PCR was negative (6) Aspiration pneumonia: Code(s): J69.0 - Pneumonitis due to inhalation of food and vomit Status: Acute Assessment and Plan: Sputum and blood culture Zosyn DC vancomycin (7) Priapism: Code(s): N48.30 - Priapism, unspecified Status: Acute Assessment and Plan: Corporal aspiration and irrigation was performed by Urology on 05/04 (8) Shock: Code(s): R57.9 - Shock, unspecified Status: Acute Assessment and Plan: Sepsis versus hypovolemic versus sedation Patient was given another IV fluid bolus in the ER Off Levophed now (9) Encephalopathy: Code(s): G93.40 - Encephalopathy, unspecified Status: Acute Assessment and Plan: Secondary to drugs and anoxic brain injury (10) KATJA (acute kidney injury): Code(s): N17.9 - Acute kidney failure, unspecified Status: Acute Assessment and Plan: Likely secondary to shock and hypovolem
[2021-05-07 08:38] LABS: Anion Gap 7 mmol/L (8-16); Blood Urea Nitrogen 10 mg/dL (9-20); Carbon Dioxide 26 mmol/L (22-30); Chloride 116 mmol/L (98-107); Estimated CRCL calculation 84 ml/min; Estimated Glomerular Filt Rate > 60; Glucose 123 mg/dL (75-110); Potassium 4.1 mmol/L (3.4-5.0); Sodium 149 mmol/L (137-145)
[2021-05-07] MEDS: ENOXAPARIN 40 MG/0.4 ML SYRINGE SUB-Q (08:54)
[2021-05-07] MEDS: ASPIRIN 325 MG TABLET FEED TUBE (08:54)
[2021-05-07] MEDS: FAMOTIDINE 20 MG/2 ML VIAL IV PUSH ×2 (08:54→20:12)
[2021-05-07 11:40] LABS: Glucose Point of Care 99 mg/dl (65-105)
[2021-05-07 13:41] LABS: Hepatitis C RNA, Quant PCR <15 IU/mL
[2021-05-07 14:55] LABS: Glucose Point of Care 110 mg/dl (65-105)
--- NOTE | 2021-05-07 16:19 | PM.IMPN ---
Progress Note: A&P Assessment and Plan (1) Cardiac arrest: Code(s): I46.9 - Cardiac arrest, cause unspecified Status: Acute Assessment and Plan: Interval history: Patient found down and CPR started. sustained significant brain injury. Hypothermia protocol started. Suspect related to drug overdose. (2) Shock: Code(s): R57.9 - Shock, unspecified Status: Acute Assessment and Plan: Patietn admitted with cardiac arrest. Continue supportive care (3) Acute respiratory failure: Code(s): J96.00 - Acute respiratory failure, unspecified whether with hypoxia or hypercapnia Status: Acute Assessment and Plan: Acute respiratory failure related to the cardiac arrest and complicated by the PNA. Stable on mechanical ventilation. Continue supportive care. (4) Anoxic brain injury: Code(s): G93.1 - Anoxic brain damage, not elsewhere classified Status: Acute Assessment and Plan: CT of the brain showing diffuse decreased borrego-white matter differentiation and narrowing of the sulci and ventricles suggesting diffuse cerebral edema likely related to global anoxic brain injury. Neurology consulted. Hypothermia protocol continued. EEG ordered. 3% saline was given for the edema. Pt to have rpt EEG tomorrow. (5) Polysubstance abuse: Code(s): F19.10 - Other psychoactive substance abuse, uncomplicated Status: Acute Assessment and Plan: Patient has extensive history of drug use. UDS positive for Amphetamines, Benzos and Cannibis. (6) KATJA (acute kidney injury): Code(s): N17.9 - Acute kidney failure, unspecified Status: Acute Assessment and Plan: Creatinine 1.5 (7) Aspiration pneumonia: Code(s): J69.0 - Pneumonitis due to inhalation of food and vomit Status: Acute Assessment and Plan: Chest x-ray reviewed personally. Patient had a new left upper lobe airspace disease but improved today but with worsening LLL airspace disease. COVID negative. Continue IV antibiotics. (8) Priapism: Code(s): N48.30 - Priapism, unspecified Status: Acute Assessment and Plan: Patient has a history priapism in the past. (9) Cerebral edema: Code(s): G93.6 - Cerebral edema Status: Acute Assessment and Plan: CT of the brain showing likely diffuse cerebral edema. (10) Encephalopathy: Code(s): G93.40 - Encephalopathy, unspecified Status: Acute Assessment and Plan: Related to above. (11) Hyperkalemia: Code(s): E87.5 - Hyperkalemia Status: Resolved Assessment and Plan: Potassium 5.6 on admission but now has normalized. (12) Transaminitis: Code(s): R74.01 - Elevation of levels of liver transaminase levels Status: Acute Assessment and Plan: AST 175 and ALT 123 felt related to shock liver. (13) DVT prophylaxis: Code(s): Z29.9 - Encounter for prophylactic measures, unspecified Status: Acute Assessment and Plan: Lovenox (14) Suspected COVID-19 virus infection: Code(s): Z20.822 - Contact with and (suspected) exposure to COVID-19 Status: Acute Assessment and Plan: COVID swab negative. Subjective Date/time seen: 05/07/21 16:19 Interval history: 41yo male with known hx of drug abuse brought in by EMS after being found down in cardiac arrest. Unfortunately pt is intubated and had EEG to see brain activity significant brain injury after cardiac arrest, awaiting rpt EEG Review of Systems Review of Systems: All systems reviewed & are unremarkable except as noted in HPI and below Exam Narrative: Exam Narrative: Vital Signs Temp Pulse Resp BP Pulse Ox 05/07/21 16:00 36.9 C 120 H 15 94/77 L 96
[2021-05-07] MEDS: PHENYLEPHRINE HCL INJ 10 MG, SODIUM CHLORIDE 0.9% INJ 19 ML I-CAVERN (18:45)
[2021-05-07 18:57] LABS: Glucose Point of Care 114 mg/dl (65-105)
[2021-05-07 20:18] LABS: Glucose Point of Care 116 mg/dl (65-105)
[2021-05-08] VITALS (24 sets, daily range): BP systolic 81–119; BP diastolic 47–83; PULSE 90–99; RESP 14–16; TEMP 36.2–37.2; O2SAT 95–98
[2021-05-08] MEDS: DESMOPRESSIN ACETATE 4 MCG/ML AMP 2 MCG IV PUSH ×2 (00:14→12:18)
[2021-05-08 01:00] LABS: Glucose Point of Care 108 mg/dl (65-105)
[2021-05-08 04:33] LABS: Alveolar/Arterial O2 Gradient 134.3 mmHg; Base Excess ABG 0.8 mEq/l (+/-2.0); Carboxyhemoglobin 0.1 % THb (0-2.0); Fractional Inspired Oxygen 35 %; HCO3 ABG 25.1 mEq/l (22.0-26.0); Methemoglobin ABG 0.1 %THb (0-1.5); Oxygen Content ABG 17.7 %vol (16.0-22.0); Oxygen Saturation ABG 94.4 % (95.0-100.0); Oxyhemoglobin 93.9 % THb (90.0-100.0); PCO2 ABG 39.1 mmHg (35.0-45.0); PO2 ABG 69.8 mmHg (80.0-100.0); PO2 FiO2 Ratio Arterial Blood 1.99 %; Reduced Hemoglobin 5.9 %THb (0-5.0); Total Hemoglobin 13.4 g/dL (12.0-18.0); pH ABG 7.425 (7.350-7.450)
[2021-05-08 04:34] LABS: Device VENTILATOR; Modified Allen's Test Pass; Site Drawn LEFT RADIAL
[2021-05-08 04:35] LABS: Arterial Blood Gas PEEP 5 cmH2O; Arterial Blood Gas Vent Mode CMV; Arterial Blood Gas Ventilator rate 15 /MIN
[2021-05-08 04:36] LABS: Arterial Blood Gas Tidal Volume 450 ml
[2021-05-08 04:45] LABS: Glucose Point of Care 134 mg/dl (65-105)
[2021-05-08 04:49] LABS: Hematocrit 38.4 % (42.0-52.0); Hemoglobin 12.2 g/dL (14.0-18.0); Mean Corpuscular HGB Conc 31.8 g/dl (32-36); Mean Corpuscular Hemoglobin 30.3 pg (26-34); Mean Corpuscular Volume 95.3 fl (80-100); Mean Platelet Volume 9.6 fl (7.4-10.4); Platelet Count Result 213 k/mm3 (150-375); Red Blood Count 4.03 M/mm3 (4.6-6.20); Red Cell Distribution Width 14.1 % (11.5-14.5); White Blood Count 10.7 K/mm3 (4.5-10.0)
[2021-05-08 05:00] LABS: Alanine Aminotransferase 53 U/L (4-50); Alkaline Phosphatase 84 U/L (38-126); Anion Gap 8 mmol/L (8-16); Aspartate Amino Transferase 36 U/L (17-59); Bilirubin,Total 0.8 mg/dL (0.2-1.3); Blood Urea Nitrogen 11 mg/dL (9-20); Calcium 8.8 mg/dL (8.4-10.2); Carbon Dioxide 24 mmol/L (22-30); Chloride 112 mmol/L (98-107); Estimated CRCL calculation 74 ml/min; Estimated Glomerular Filt Rate 52; Glucose 124 mg/dL (75-110); Potassium 3.6 mmol/L (3.4-5.0); Sodium 144 mmol/L (137-145)
[2021-05-08] MEDS: PHENYLEPHRINE HCL INJ 10 MG, SODIUM CHLORIDE 0.9% INJ 19 ML I-CAVERN (05:01)
[2021-05-08] MEDS: CENTRAL LINE FLUSH 10 ML IV PUSH ×4 (05:48→20:21)
--- NOTE | 2021-05-08 06:38 | WPDUROPN2 ---
Progress Note: A&P Assessment and Plan (1) Priapism: Code(s): N48.30 - Priapism, unspecified Status: Acute Assessment and Plan: Recurrent priapism - responds to phenylephrine injections. Give other significant medical issues, will not aggressive treat at this time Subjective Subjective Date/Time Seen: 05/08/21 06:38 Unresponsive Review of Systems Review of Systems: ROS unobtainable: Yes unobtainable due to medical condition Exam : Penis: Yes priapism (moderate) Objective Data Vital Signs Vital Signs: Vital Signs - 24 hr 05/07/21 08:00 05/07/21 08:06 05/07/21 10:00 Temperature 97.2 F L 97.6 F Pulse Rate 134 H 134 H 136 H Respiratory Rate 11 L 15 Blood Pressure 124/92 H 134/98 H Pulse Oximetry 94 94 94 05/07/21 11:05 05/07/21 12:00 05/07/21 14:00 Temperature 97.8 F Pulse Rate 135 H 134 H 125 H Respiratory Rate 21 H 15 Blood Pressure 113/75 117/65 Pulse Oximetry 96 95 96 05/07/21 14:16 05/07/21 16:00 05/07/21 16:57 Temperature 98.5 F Pulse Rate 126 H 120 H 118 H Respiratory Rate 15 Blood Pressure 94/77 L Pulse Oximetry 96 96 96 05/07/21 18:00 05/07/21 20:00 05/07/21 22:00 Temperature 98.2 F 98.0 F 98.2 F Pulse Rate 108 H 102 H 99 Respiratory Rate 15 15 15 Blood Pressure 92/65 L 90/75 L 105/70 Pulse Oximetry 97 97 97 05/07/21 23:05 05/08/21 00:00 05/08/21 01:00 Temperature 98.1 F Pulse Rate 101 H 98 95 Respiratory Rate 15 Blood Pressure 88/69 L 81/47 L Pulse Oximetry 96 96 05/08/21 02:00 05/08/21 02:10 05/08/21 04:00 Temperature 97.1 F L 97.5 F L Pulse Rate 92 92 93 Respiratory Rate 15 15 Blood Pressure 96/63 L 98/67 L Pulse Oximetry 97 96 95 05/08/21 04:55 05/08/21 06:00 Temperature 97.8 F Pulse Rate 93 92 Respiratory Rate 15 Blood Pressure 92/66 L Pulse Oximetry 95 96 Intake/Output Intake/Output: Intake & Output 05/05/21 05/06/21 05/07/21 05/08/21 23:59 23:59 23:59 23:59 Intake Total 5859 2940 3800 600 Output Total 3550 3675 2650 525 Balance 2309 -304 1150 75 Meds/Results Medications: Active Medications Generic Name Dose Route Start Last Admin Trade Name Freq PRN Reason Stop Dose Admin Aspirin 325 mg 05/04/21 13:11 05/07/21 08:54 Aspirin 325 Mg Tablet FEED TUBE 325 mg DAILY@0800 MATEO Administration Phenylephrine HCl 10 mg/ 0 mg 05/04/21 11:04 05/08/21 05:01 Sodium Chloride 19 ml I-CAVERN 1 ml PRN PRN Administration PRIAPISM Desmopressin Acetate 2 mcg 05/07/21 00:00 05/08/21 00:14 Desmopressin Acetate 4 Mcg/Ml Amp IV PUSH 2 mcg Q12H MATEO Administration Dextrose 12.5 gm 05/04/21 10:23 05/06/21 04:20 Dextrose 50% 25 Gm/50 Ml Syringe IV PUSH 12.5 gm PRN PRN Administration Hypoglycemia Protocol Enoxaparin Sodium 40 mg 05/04/21 10:00 05/07/21 08:54 Enoxaparin 40 Mg/0.4 Ml Syringe SUB-Q 40 mg DAILY MATEO Administration Famotidine 20 mg 05/04/21 21:00 05/07/21 20:12 Famotidine 20 Mg/2 Ml Vial IV PUSH 20 mg Q12HR MATEO Administration Glucagon 1 mg 05/04/21 10:23 Glucagon For Inj 1 Mg Vial IM PRN PRN Hypoglycemia Protocol Glucose 15 gm 05/04/21 10:23 Glucose Oral Gel 15 Gm Of Glucse In 37.5 Gm Tube PO PRN PRN Hypoglycemia Protocol Hydralazine HCl 20 mg 05/07/21 03:07 05/07/21 03:42 Hydralazine Hcl 20 Mg/Ml Vial IV PUSH 20 mg Q4H PRN Administration Hypertension Piperacillin/Tazobactam/Dextrose 3.375 gm in 50 mls @ 100 mls/hr 05/04/21 12:00 05/08/21 05:30 Zosyn 3.375 Gm/D5w 50ml Pm IVPB Infused Q6H MATEO Infusion Norepinephrine Bitartrate 8 mg in 250 mls @ 5.625 mls/hr 05/04/21 10:00 05/08/21 05:51 Levophed 8 Mg/D5w 250 Ml IV CONT 3 mcg/min .[id number] MATEO 5.63 mls/hr Titration Protocol 3 MCG/MIN Vasopressin 100 units/ 100 mls @ 1.2 mls/hr 05/04/21 10:00 05/05/21 08:54 Dextrose IV CONT Not Given .Q72H MATEO Protocol 0.0
--- NOTE | 2021-05-08 08:26 | WPDINTPN ---
Progress Note: A&P Assessment and Plan (1) Anoxic brain injury: Code(s): G93.1 - Anoxic brain damage, not elsewhere classified Status: Acute Assessment and Plan: Patient clearly had severe anoxic brain injury on presentation as evidenced from his head CT on presentation along with cerebral edema. Patient was started on TTM protocol and reached his goal temperature at 6:00 p.m. He was also started on 3% saline to drive his sodium up which was discontinued once the sodium reached above 150 Patient was sedated with propofol for TTM protocol 05/05 patient was breathing over the ventilator Repeat head CT was done 05/05 IMPRESSION: Global anoxic brain injury with worsening cerebral and cerebellar edema, effacement of ventricles and developing tonsillar uncal herniation. Infarcted basal ganglia and caudate bilaterally. He was given a dose of mannitol 05/06 patient was evaluated for brain . His clinical exam was consistent with brain examination. Apnea test was done. His CO2 increased but did not meet the criteria for confirmation. EEG also showed some activity and was not fully flat as per discussion with Neurology. Full report is still pending Patient is also being seen by Neurology Patient has not been on any sedation for many days Today patient exhibited decerebrate posturing response on pain in upper extremities. No other change in neuro exam Patient is getting repeat EEG today Plan to repeat head CT Current neuro exam on day 4 suggest severe anoxic injury with poor prognosis Continue supportive care this time. Not on any sedation (2) Cerebral edema: Code(s): G93.6 - Cerebral edema Status: Acute Assessment and Plan: Patient was on 3% saline which was discontinued once sodium reached above 150 Patient did receive 1 dose of mannitol although continuous mannitol was not used due to lack of availability of timely serum osmolality testing as that test is sent out in this hospital's (3) Cardiac arrest: Code(s): I46.9 - Cardiac arrest, cause unspecified Status: Acute Assessment and Plan: Likely secondary to drug overdose Continue Telemetry monitoring Mild elevation in troponin likely secondary to cardiac arrest and not a primary ACS etiology. He is on aspirin Reviewed echocardiogram Monitor and replace electrolytes Respiratory and hemodynamic support (4) Acute respiratory failure: Code(s): J96.00 - Acute respiratory failure, unspecified whether with hypoxia or hypercapnia Status: Acute Assessment and Plan: Acute Respiratory failure secondary to cardiac arrest and anoxic brain injury Continue full mechanical ventilation support to prevent hypoxemia/hypercarbia and end organ damage. ABG and PCXR reviewed He is down to 30% FiO2 DC vancomycin but continue Zosyn for aspiration pneumonia (5) Suspected COVID-19 virus infection: Code(s): Z20.822 - Contact with and (suspected) exposure to COVID-19 Status: Acute Assessment and Plan: COVID-19 was suspected. SARS-CoV-2 PCR was negative (6) Aspiration pneumonia: Code(s): J69.0 - Pneumonitis due to inhalation of food and vomit Status: Acute Assessment and Plan: Sputum and blood culture Cultures growing Gram-positive bacilli from anaerobic bottle Continue Zosyn DC vancomycin (7) Priapism: Code(s): N48.30 - Priapism, unspecified Status: Acute Assessment and Plan: Corporal aspiration and irrigation was performed by Urology on 05/04 Patient continues to have recurrent priapism Had Pedro-Synephrine injected again today Urology is following (8) Shock: Code(s): R57.9 - Shock, unspecified Status: Acute Assessment and Plan: On low-dose Levophed right now Will give 1 L saline bolus (9) Encephalopathy: Code(s): G93.40 - Encephalopathy, unspecified Status: Acute Assessment and Plan: Secondary to drugs and anoxic brain injury
--- NOTE | 2021-05-08 09:03 | WPDNEUROLOGY ---
Neurology EEG Report General Information Date of Study: 05/06/21 TEST eeg DIAGNOSIS Is status post cardiopulmonary arrest CONDITION OF RECORDING unresponsive EEG NUMBER [id number] CLINICAL HISTORY patient came to the hospital as a cardiac arrest due to a possible drug overdose EEG DESCRIPTION whole record consists of minimal cortical activity, non paroxysmal nonfocal nonlateralizing IMPRESSION findings suggestive of organic a metabolic encephalopathy considering the clinical history of cardiac arrest most likely suggestive of hypoxic encephalopathy
--- NOTE | 2021-05-08 09:33 | WPDNEUROLOGY ---
Neurology EEG Report General Information Date of Study: 05/08/21 TEST eeg DIAGNOSIS Anoxic brain injury CONDITION OF RECORDING unresponsive with no sedation over the last 48 hours EEG NUMBER [id number] CLINICAL HISTORY history of cardiac arrest with hypothermia protocol and remains unresponsive no sedation over the last 48 hours EEG DESCRIPTION isoelectric EEG with no evidence of cortical activity throughout the tracing IMPRESSION isoelectric EEG compatible with electrocerebral silence without any sedation and this is a repeat tracing a 48 hours
[2021-05-08] MEDS: SODIUM CHLORIDE 0.9% IV 1,000 ML 999 ML IV CONT (09:46)
[2021-05-08] MEDS: FAMOTIDINE 20 MG/2 ML VIAL IV PUSH ×2 (09:46→20:21)
[2021-05-08] MEDS: SODIUM CHLORIDE 0.9% IV 1,000 ML 100 ML IV CONT (09:47)
--- NOTE | 2021-05-08 10:15 | WPDNEUROPN ---
Progress Note: A&P Additional Plan patient has had 2 EEG completely flat clinically neurological status is unchanged brain protocol has been run by review scheduling coordinator and the family meeting is scheduled today for the further discussion Review of Systems Review of Systems: All systems reviewed & are unremarkable except as noted in HPI and below Exam Narrative: Exam Narrative: patient remains unresponsive to the verbal or painful stimuli except occasional stretching of the lower extremities, pupils are dilated nonreactive to light, extraocular movements are absent to doll's, facial grimaces absent, gag is absent there is no spontaneous movements of upper and lower extremities, and there is no movements to the painful stimuli in upper and lower extremities, there is no deep tendon reflexes and plantars are upgoing bilaterally heart regular lungs with rhonchi abdomen is soft bowel sounds Objective Data Vital Signs Vital Signs: Vital Signs - 24 hr 05/07/21 11:05 05/07/21 12:00 05/07/21 14:00 Temperature 36.6 C Pulse Rate 135 H 134 H 125 H Respiratory Rate 21 H 15 Blood Pressure 113/75 117/65 Pulse Oximetry 96 95 96 05/07/21 14:16 05/07/21 16:00 05/07/21 16:57 Temperature 36.9 C Pulse Rate 126 H 120 H 118 H Respiratory Rate 15 Blood Pressure 94/77 L Pulse Oximetry 96 96 96 05/07/21 18:00 05/07/21 20:00 05/07/21 22:00 Temperature 36.8 C 36.7 C 36.8 C Pulse Rate 108 H 102 H 99 Respiratory Rate 15 15 15 Blood Pressure 92/65 L 90/75 L 105/70 Pulse Oximetry 97 97 97 05/07/21 23:05 05/08/21 00:00 05/08/21 01:00 Temperature 36.7 C Pulse Rate 101 H 98 95 Respiratory Rate 15 Blood Pressure 88/69 L 81/47 L Pulse Oximetry 96 96 05/08/21 02:00 05/08/21 02:10 05/08/21 04:00 Temperature 36.2 C L 36.4 C L Pulse Rate 92 92 93 Respiratory Rate 15 15 Blood Pressure 96/63 L 98/67 L Pulse Oximetry 97 96 95 05/08/21 04:55 05/08/21 06:00 05/08/21 07:40 Temperature 36.6 C Pulse Rate 93 92 93 Respiratory Rate 15 Blood Pressure 92/66 L Pulse Oximetry 95 96 97 05/08/21 10:00 Temperature Pulse Rate 93 Respiratory Rate Blood Pressure Pulse Oximetry Intake/Output Intake/Output: Intake & Output 05/05/21 05/06/21 05/07/21 05/08/21 23:59 23:59 23:59 23:59 Intake Total 5859 2940 3800 600 Output Total 3550 3675 2650 525 Balance 2309 -039 1150 75 Meds/Results Medications: Active Medications Generic Name Dose Route Start Last Admin Trade Name Freq PRN Reason Stop Dose Admin Phenylephrine HCl 10 mg/ 0 mg 05/04/21 11:04 05/08/21 05:01 Sodium Chloride 19 ml I-CAVERN 1 ml PRN PRN Administration PRIAPISM Desmopressin Acetate 2 mcg 05/07/21 00:00 05/08/21 00:14 Desmopressin Acetate 4 Mcg/Ml Amp IV PUSH 2 mcg Q12H MATEO Administration Dextrose 12.5 gm 05/04/21 10:23 05/06/21 04:20 Dextrose 50% 25 Gm/50 Ml Syringe IV PUSH 12.5 gm PRN PRN Administration Hypoglycemia Protocol Famotidine 20 mg 05/04/21 21:00 05/08/21 09:46 Famotidine 20 Mg/2 Ml Vial IV PUSH 20 mg Q12HR MATEO Administration Glucagon 1 mg 05/04/21 10:23 Glucagon For Inj 1 Mg Vial IM PRN PRN Hypoglycemia Protocol Glucose 15 gm 05/04/21 10:23 Glucose Oral Gel 15 Gm Of Glucse In 37.5 Gm Tube PO PRN PRN Hypoglycemia Protocol Hydralazine HCl 20 mg 05/07/21 03:07 05/07/21 03:42 Hydralazine Hcl 20 Mg/Ml Vial IV PUSH 20 mg Q4H PRN Administration Hypertension Piperacillin/Tazobactam/Dextrose 3.375 gm in 50 mls @ 100 mls/hr 05/04/21 12:00 05/08/21 05:30 Zosyn 3.375 Gm/D5w 50ml Pm IVPB Infused Q6H MATEO Infusion Norepinephrine Bitartrate 8 mg in 250 mls @ 5.625 mls/hr 05/04/21 10:00 05/08/21 05:51 Levophed 8 Mg/D5w 250 Ml IV CONT 3 mcg/min .[id number] MATEO 5.63 mls/hr Titration Protocol 3 MCG/MIN Vasopressin 100 units/ 100 mls @ 1.2 mls/hr 05/04/21 10:00 05/05/21 08:54 Dextrose
[2021-05-08 11:36] LABS: Glucose Point of Care 97 mg/dl (65-105)
--- NOTE | 2021-05-08 13:20 | PCDIET ---
Nutrition Follow-Up Complete: Nutrition Diagnosis: Inadequate oral intake related to oral intubation as evidenced by NPO status. Nutrition Goal: Patient to meet estimated nutritional needs. Goal in progress. New order for Jevity 1.2 at 50mL/hr with 30mL water flush every 4 hours noted. This will provide 1320kcal and 61g protein over 22 hours/day. Family meeting today to discuss plan of care following EEG. Last recorded weight is 104.6 kg which is increased from last review. Bowel Motility: No documented BM. Labs Reviewed: WBC (10.7), Hct (12.2), Hct (38.4), Glu (124), Cr (1.5), Alb (3.0) Meds Noted: Apresoline, Levophed, Ddavp, Phenylephrine, Pepcid, Zosyn, NS at 100mL/hr Additional Notes: Scab on right buttock noted. Will continue to monitor with same goal. Nutrition Monitoring and Evaluation: Follow up every Saturday/Saturday.
--- NOTE | 2021-05-08 13:49 | P.PNCROSS_ITS ---
Event Note Event Note Event Note: I discussed case with Dr. Chavira including clinical exam, CT head report and EEG report. I met with patient's and his mother in presence of neurologist, industrial equipment wirer, case management assistant, patient's nurse José and went over patient's current new neurological status and results of EEG and CT head reports. I explained them the patient's clinical picture suggests critical neurological injury and his prognosis is poor. His chances of functional neurological recovery are negligible. They told me that patient would not want to be live dependent on machines, bed-bound and cared by others. I answered all their questions. 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 They will discuss among themselves before deciding further course of action. They also want patient's daughter to come visit him. Additional critical care time spent 20 minutes
--- NOTE | 2021-05-08 14:16 | PC.NURSE ---
had a meeting with family, , motherand her , today with Dr. Jones, neuro doc, vessel ordinary seaman, adult day care worker,see physician's note
[2021-05-08 14:33] LABS: Glucose Point of Care 94 mg/dl (65-105)
--- NOTE | 2021-05-08 15:40 | PM.IMPN ---
Progress Note: A&P Assessment and Plan (1) Cardiac arrest: Code(s): I46.9 - Cardiac arrest, cause unspecified Status: Acute Assessment and Plan: Patient found down and CPR started. ROSC achieved after 20 minutes but unclear on how long he was down prior to EMS arrival. Patient underwent hypothermia protocol. Suspect related to drug overdose. EKG not consistent with ACS. Troponin elevated but felt related to the cardiac arrest. Neuro function poor. Continue supportive care. (2) Shock: Code(s): R57.9 - Shock, unspecified Status: Acute Assessment and Plan: Soledad had HoTN on admission related to the cardiac arrest. Was on Levophed but able to be weaned off initially but now back on Levophed. Continue IV fluids. Continue supportive care (3) Acute respiratory failure: Code(s): J96.00 - Acute respiratory failure, unspecified whether with hypoxia or hypercapnia Status: Acute Assessment and Plan: Acute respiratory failure related to the cardiac arrest and complicated by the PNA. Stable on mechanical ventilation. Continue supportive care. (4) Diabetes insipidus: Code(s): E23.2 - Diabetes insipidus Status: Acute Assessment and Plan: Na climbed to 158 felt related to DI. Treated with free water and now desmopressin. IV fluids changed to NS. Na 144 today. Follow (5) Anoxic brain injury: Code(s): G93.1 - Anoxic brain damage, not elsewhere classified Status: Acute Assessment and Plan: CT of the brain showing diffuse decreased borrego-white matter differentiation and narrowing of the sulci and ventricles suggesting diffuse cerebral edema likely related to global anoxic brain injury. 3% saline was given for the edema. Related to prolonged down time. Neurology consulted. Hypothermia protocol completed. Sedation was turned off. First EEG 6/5 showing findings suggestive of organic a metabolic encephalopathy considering the clinical history of cardiac arrest most likely suggestive of hypoxic encephalopathy. Second EEG 6/7 showing an isoelectric EEG with no evidence of cortical activity throughout the tracing (2nd EEG). Family made aware of the patient's severe clinical situation and they are considering on withdrawing care. (6) Polysubstance abuse: Code(s): F19.10 - Other psychoactive substance abuse, uncomplicated Status: Acute Assessment and Plan: Patient has extensive history of drug use. UDS positive for Amphetamines, Benzos and Cannibis. Off sedation. Monitor for withdrawal symptoms. (7) KATJA (acute kidney injury): Code(s): N17.9 - Acute kidney failure, unspecified Status: Acute Assessment and Plan: Creatinine 1.9 on admission. Most likely related to hypoperfusion. He is on IV fluids. Blood pressure better controlled. Cr down to 1.5. Continue to follow. (8) Aspiration pneumonia: Code(s): J69.0 - Pneumonitis due to inhalation of food and vomit Status: Acute Assessment and Plan: Chest x-ray reviewed personally. Patient had a new left upper lobe airspace disease but improved but with worsening LLL airspace disease. COVID negative. Blood cultures positive for gram positive bacilli (1of2) but felt to be contaminant. Continue IV antibiotics. Follow up on ID and sensitivities (9) Priapism: Code(s): N48.30 - Priapism, unspecified Status: Acute Assessment and Plan: Patient has a history priapism in the past. [place] related to ephedrine during resuscitation. Pt having recurrent priapism that responds to phenylephrine injections. Continue to monitor. Appreciate urology input. (10) Cerebral edema: Code(s): G93.6 - Cerebral edema Status: Acute Assessment and Plan: CT of the brain showing likely diffuse cerebral edema. Related to prolonged down time in asystole. As above. (11) Encephalopathy:
[2021-05-08 18:05] LABS: Amylase 48 U/L (30-110); Lipase 38 U/L (23-300)
[2021-05-08 18:06] LABS: Alanine Aminotransferase 48 U/L (4-50); Albumin Level 3.1 g/dL (3.5-5.1); Alkaline Phosphatase 98 U/L (38-126); Anion Gap 7 mmol/L (8-16); Aspartate Amino Transferase 35 U/L (17-59); Bilirubin,Total 0.5 mg/dL (0.2-1.3); Blood Urea Nitrogen 10 mg/dL (9-20); Calcium 8.6 mg/dL (8.4-10.2); Carbon Dioxide 25 mmol/L (22-30); Chloride 113 mmol/L (98-107); Estimated CRCL calculation 74 ml/min; Estimated Glomerular Filt Rate 52; Glucose 92 mg/dL (75-110); Potassium 3.6 mmol/L (3.4-5.0); Sodium 145 mmol/L (137-145)
[2021-05-08 18:07] LABS: Hematocrit 38.5 % (42.0-52.0); Hemoglobin 12.1 g/dL (14.0-18.0); Mean Corpuscular HGB Conc 31.4 g/dl (32-36); Mean Corpuscular Hemoglobin 29.8 pg (26-34); Mean Corpuscular Volume 94.8 fl (80-100); Mean Platelet Volume 9.5 fl (7.4-10.4); Platelet Count Result 231 k/mm3 (150-375); Red Blood Count 4.06 M/mm3 (4.6-6.20); White Blood Count 9.5 K/mm3 (4.5-10.0)
[2021-05-08 18:08] LABS: Partial Thromboplastin Time 37.8 SECONDS (22.3-36.8)
[2021-05-08 18:08] LABS: Alveolar/Arterial O2 Gradient 488.4 mmHg; Base Excess ABG 0.9 mEq/l (+/-2.0); Device VENTILATOR; Fractional Inspired Oxygen 100 %; HCO3 ABG 24.7 mEq/l (22.0-26.0); Modified Allen's Test Unable to perform; Oxygen Saturation ABG 99.3 % (95.0-100.0); PCO2 ABG 37.1 mmHg (35.0-45.0); PO2 ABG 187.5 mmHg (80.0-100.0); PO2 FiO2 Ratio Arterial Blood 1.88 %; Site Drawn RIGHT RADIAL; Total Hemoglobin 12.8 g/dL (12.0-18.0); pH ABG 7.442 (7.350-7.450)
[2021-05-08 18:08] LABS: INR 1.1; Prothrombin Time 14.6 Seconds (11.1-14.7)
[2021-05-08 18:09] LABS: Arterial Blood Gas PEEP 5 cmH2O; Arterial Blood Gas Tidal Volume 450 ml; Arterial Blood Gas Vent Mode CMV; Arterial Blood Gas Ventilator rate 15 /MIN
[2021-05-08 18:13] LABS: Creatine Kinase 270 U/L (55-170)
[2021-05-08 18:15] LABS: Lactic Acid Reflex 0.7 mmol/L (0.7-2.1)
[2021-05-08 18:16] LABS: Calcium 8.7 mg/dL (8.4-10.2); Magnesium 1.4 mg/dL (1.6-2.3)
[2021-05-08 18:23] LABS: Creatine Kinase MB 1.5 ng/mL (0.0-2.37)
[2021-05-08 18:36] LABS: Glucose Point of Care 86 mg/dl (65-105)
[2021-05-08 19:00] LABS: Hemoglobin A1C 5.4 % (<5.7)
[2021-05-08 19:00] LABS: Add Urine Microscopic? YES; Appearance Urine Clear (Clear); Bilirubin Urine Negative (Negative); Blood Urine 1+ (Negative); Color Urine Yellow (Yellow); Glucose Urine UA Negative (Negative); Ketones Urine Negative (Negative); Leukocyte Esterase Ur Negative LEU/UL (NEGATIVE); Mucus Urine Rare /lpf; Nitrate Urine Negative (Negative); Protein Urine 1+ mg/dL (Negative); Specific Grav Ur 1.014 (1.001-1.035); Urobilinogen Urine Negative mg/dL (<2.0)
[2021-05-08 19:05] LABS: EDCOVIDSCREEN Negative (Negative)
[2021-05-08 20:59] LABS: Glucose Point of Care 100 mg/dl (65-105)
[2021-05-08] MEDS: NOREPINEPHRINE 8 MG/D5W 250 ML 8 MG/250 ML BAG 5.63 MG IV CONT (21:00)
--- NOTE | 2021-05-08 22:10 | PC.NURSE ---
Per MTS, pt does not need morning ABG. ABG cancelled.
[2021-05-08 23:53] LABS: Glucose Point of Care 95 mg/dl (65-105)
[2021-05-09] VITALS (14 sets, daily range): BP systolic 79–183; BP diastolic 29–109; PULSE 85–96; RESP 15; TEMP 36.2–36.7; O2SAT 94–96
[2021-05-09 00:33] LABS: Phosphorus 4.2 mg/dL (2.5-4.5)
[2021-05-09 00:36] LABS: Alanine Aminotransferase 39 U/L (4-50); Albumin Level 2.8 g/dL (3.5-5.1); Alkaline Phosphatase 91 U/L (38-126); Anion Gap 6 mmol/L (8-16); Aspartate Amino Transferase 31 U/L (17-59); Bilirubin,Total 0.5 mg/dL (0.2-1.3); Blood Urea Nitrogen 10 mg/dL (9-20); Calcium 8.6 mg/dL (8.4-10.2); Carbon Dioxide 26 mmol/L (22-30); Chloride 111 mmol/L (98-107); Estimated CRCL calculation 74 ml/min; Estimated Glomerular Filt Rate 52; Glucose 100 mg/dL (75-110); Magnesium 1.5 mg/dL (1.6-2.3); Potassium 3.6 mmol/L (3.4-5.0); Sodium 143 mmol/L (137-145)
[2021-05-09 00:40] LABS: Basophils Percent Auto 0.3 % (0.2-1.2); Eosinophils Absolute Auto 0.2 K/mm3 (0-0.3); Eosinophils Percent Auto 2.3 % (0-4.4); Hematocrit 36.2 % (42.0-52.0); Hemoglobin 11.5 g/dL (14.0-18.0); Immature Granulocyte Absolute 0.05 K/mm3 (0.00-0.031); Immature Granulocyte Percent A 0.5 % (0-0.5); Lymphocytes Percent Auto 12.3 % (18.3-44.2); Mean Corpuscular HGB Conc 31.8 g/dl (32-36); Mean Corpuscular Hemoglobin 30.3 pg (26-34); Mean Corpuscular Volume 95.5 fl (80-100); Mean Platelet Volume 9.9 fl (7.4-10.4); Monocytes Absolute Auto 1.3 K/mm3 (0.1-0.6); Monocytes Percent Auto 12.9 % (2.6-8.5); Neutrophils Percent Auto 71.7 % (45.5-73.1); Platelet Count Result 228 k/mm3 (150-375); Red Blood Count 3.79 M/mm3 (4.6-6.20); Red Cell Distribution Width 13.8 % (11.5-14.5); White Blood Count 9.7 K/mm3 (4.5-10.0)
--- NOTE | 2021-05-09 00:57 | P.PCNBED_ITS ---
Procedures Arterial Line Arterial Line Date: 05/09/21 Arterial Line Time: 00:35 Discussed with the patient/family/POA, the placement of an arterial catheter, including its clinical necessity/indication and associated potential risks, benefits and alternatives.: Yes Patient/family/POA and/or understands and acknowledges the need to proceed with the arterial catheter insertion as an important element of the patient's clinical management.: Yes Time Out Performed: Yes Patient Position: supine Rubber Press Operator Prep: sterile gown, sterile gloves, mask and hat Site: right and radial Site Prep: chlorhexidine and sterile drape Skin Anesthesia: none Technique used: ultrasound-guided Size (Gauge): 20 Length: 4.4 cm Closure/Dressing: suture, transparent dressing and securement product Patient tolerated procedure: well Complications: none
[2021-05-09] MEDS: PHENYLEPHRINE HCL INJ 10 MG, SODIUM CHLORIDE 0.9% INJ 19 ML I-CAVERN (01:39)
[2021-05-09] MEDS: DESMOPRESSIN ACETATE 4 MCG/ML AMP 2 MCG IV PUSH (01:39)
[2021-05-09 04:00] LABS: Glucose Point of Care 93 mg/dl (65-105)
[2021-05-09] MEDS: CENTRAL LINE FLUSH 10 ML IV PUSH (05:56)
[2021-05-09 06:01] LABS: Glucose Point of Care 88 mg/dl (65-105)
[2021-05-09] MEDS: HEPARIN SODIUM 5,000 UNITS/ML VIAL 30000 UNITS IV PUSH (08:40)
--- NOTE | 2021-05-09 09:19 | SUR.OPER ---
Patient brought to OR 9 @ 0829. Patient was monitored by Dr Jones and Rachel Mahmood RN, Patient was extubated at 0844. Mother and Aunt were brought in @ 08:45 to be at patients side. Patient examined by Dr Jones @ 0904. No heart rate, no heart beat, no pulses and pronounced . Mother and Aunt left the OR room with Hakan from [facility]. Patient re-examined by Dr Jones @ 0909 with no change in patient condition. MTS team arrived in room, prepped patient for surgery and incision was made @ 0910.
--- NOTE | 2021-05-09 09:30 | PC.NURSE ---
Patient transported to OR for planned donation after cardiac by this RN, RT Ambreen, and FOLDER STITCHER OPERATOR Starla. Patient's family (mother Danny and aunt) escorted to OR by Chaplian Hakan. Patient extubated at 0844 and no respirations were noted. Time of was pronounced at [address] Jones. Confirmation of at [address] Jones.
--- NOTE | 2021-05-09 09:46 | P.PNCROSS_ITS ---
Event Note Event Note Event Note: I saw patient this morning and there was no change in his neuro exam. Patient continues to be unresponsive, dilated unreactive pupils, no response to pain, I did not even see the posturing on painful stimuli today. Overnight patient's family had decided to withdraw care and donate his organs consistent with patient's wishes. MTS was contacted and lab work was ordered overnight for evaluation. A radial arterial line was placed by Dr. Kent in overnight. After extensive discussion with patient's family and MTS it was decided the patient will be taken to operating room and care withdrawn there. Patient's family saw patient in the room and then we took down patient to o perating room. Patient was palliatively extubated in the operating room. Levophed was stopped. Heparin was given prior to that as per MTS recommendations. Patient was monitored. Eventually patient became asystole and lost pulses. Patient had no pulse in either carotid or femoral artery. No heart sounds on auscultation. Patient was pronounced at 9:04 a.m.. Patient was then scrubbed by MTS team. I re-examined the patient after 5 minutes at 9:09 a.m. and confirmed the exam with no pulses or heart sounds. Care at that point was taken over by MTS team who started the process of organ harvesting. Total Critical Care Time - 60 minutes Due to a high probability of clinically significant, life threatening deterioration, the patient required my highest level of preparedness to in [facility] emergently and I personally spent this critical care time directly and personally managing the patient. This critical care time included obtaining a history; examining the patient; pulse oximetry; ordering and review of studies; arranging urgent treatment with development of a management plan; evaluation of patient's response to treatment; frequent reassessment; and discussions with other providers. It was exclusive of separately billable procedures and treating other patients and teaching time. Please see Assessment and Plan section and the rest of the note for further information on patient assessment and treatment
--- NOTE | 2021-05-09 10:25 | PM.DDS ---
Discharge Sum: Prov Provider Primary care physician: [facility] Admitting provider: Meng Shaver MD Attending physician on admission: Tuan Shaver Consults: 05/04/21 Consult to Physician Routine Comment: Consulting Provider: Pato Lezama beauty consultant/MD group to consult: Neurology Reason for consultation: Anoxic brain Injury Has provider been notified: Yes Consult to Physician Routine Comment: Consulting Provider: Nolan Arango beauty consultant/MD group to consult: Urology Reason for consultation: Priapism Has provider been notified: Yes 05/04/21 09:04 Consult to Physician Routine Comment: Consulting Provider: Gigi Jones Reason for consultation: icu care Has provider been notified: Yes Pronouncing clinician: Gigi Jones Discharge Sum: Diag PCOD Cardiac arrest with anoxic brain injury Contributing Factors (1) Cardiac arrest: (2) Shock: (3) Acute respiratory failure: (4) Diabetes insipidus: (5) Anoxic brain injury: (6) Polysubstance abuse: (7) KATJA (acute kidney injury): (8) Aspiration pneumonia: (9) Priapism: (10) Cerebral edema: (11) Encephalopathy: (12) Hyperkalemia: (13) Transaminitis: Discharge Sum: Summary Date and Time Date of admission: 05/04/21 08:42 Date of : 05/09/21 Time of : 09:04 Summary Details: 41yo male with known hx of drug abuse brought in by EMS after being found down in cardiac arrest. Patient found down and CPR started by EMS. ROSC achieved after 20 minutes but unclear on how long he was down prior to EMS arrival. Patient admitted to ICU and underwent hypothermia protocol. Suspect cardiac arrest related to drug overdose. EKG not consistent with ACS. Troponin elevated but felt related to the cardiac arrest. Neuro function poor. CT of the brain showing diffuse decreased borrego-white matter differentiation and narrowing of the sulci and ventricles suggesting diffuse cerebral edema likely related to global anoxic brain injury. 3% saline was given for the cerebral edema. Related to prolonged down time. Neurology consulted. Hypothermia protocol was completed. Sedation was turned off. First EEG 6/ showing findings suggestive of organic a metabolic encephalopathy considering the clinical history of cardiac arrest most likely suggestive of hypoxic encephalopathy. Second EEG 6/ showing an isoelectric EEG with no evidence of cortical activity throughout the tracing (2nd EEG). Family made aware of the patient's severe clinical situation and they decided to withdraw care. Patient extubated and was pronounced on 05/09/21 at 0904. 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 Additional Data Family: contacted Attending physician: Meng Shaver MD Was code activated?: No Autopsy requested?: No Hospice patient?: No
--- NOTE | 2021-05-09 11:01 | PC.NURSE ---
[facility] contacted per family request.
[2021-05-11 20:55] LABS: GGT 55 U/L (3-95)
== END 2021-05-09 09:04 | disposition expired | DRG 917 ==
LOC: ANHED 09:16 → ANHICU 09:27
PROVIDERS: Emergency Medicine; Internal Medicine; Admitting Provider Internal Medicine; Emergency Provider Emergency Medicine; Visit Provider Internal Medicine
DX: T50.901A Poisoning by unspecified drugs, medicaments and biological substances, accidental (unintentional), initial encounter (principal); J96.00 Acute respiratory failure, unspecified whether with hypoxia or hypercapnia; G93.6 Cerebral edema; J69.0 Pneumonitis due to inhalation of food and vomit; G93.1 Anoxic brain damage, not elsewhere classified; N48.30 Priapism, unspecified; R57.9 Shock, unspecified; G93.40 Encephalopathy, unspecified; N17.9 Acute kidney failure, unspecified; E23.2 Diabetes insipidus; I46.8 Cardiac arrest due to other underlying condition; Z20.822 Contact with and (suspected) exposure to COVID-19; F43.10 Post-traumatic stress disorder, unspecified; F17.210 Nicotine dependence, cigarettes, uncomplicated; F19.10 Other psychoactive substance abuse, uncomplicated; E87.5 Hyperkalemia; R74.01 Elevation of levels of liver transaminase levels
CPT/HCPCS: 31500; 36415; 36600; 70450; 71045; 72125; 80048; 80053; 80076; 80202; 80307; 81001; 82150; 82248; 82310; 82375; 82550; 82553; 82805; 82948; 82977; 83036; 83050; 83605; 83690; 83735; 83930; 84100; 84311; 84484; 85025; 85027; 85610; 85730; 86703; 86704; 86706; 86709; 86803; 86850; 86900; 86901; 87040; 87070; 87077; 87086; 87205; 87340; 87426; 87522; 93005; 93306; 94003; 95816; 95819; 96365; 96375; 99291; A9270; C1751; C9803; G0432; J0360; J0692; J1644; J1650; J2370; J2543; J2597; J2704; J3010; J3370; J3480; J7030; J7060; J7070; J7131; U0003; U0005